=== PATIENT | female | born 1965 | race American Indian/Alaskan Native ===

== ENCOUNTER 2016-06-19 14:23 | Emergency (ER) | payer BC ==
[2016-06-19] MEDS ORDERED: TYLENOL/CODEINE PO ONE (19:00)
[2016-06-19] MEDS ORDERED: TESSALON PERLES PO ONE (19:00)
--- NOTE | 2016-06-19 19:42 | Emergency Department Report ---
Entered by ALEXA PHILLIPS, acting as scribe for ALEJO TAPIA PA. - General Chief Complaint: Upper Respiratory Infection Stated Complaint: FLU SYMPTOMS Time Seen by Provider: 06/19/16 18:08 Source: patient Mode of arrival: Ambulatory Limitations: No Limitations - History of Present Illness Initial Comments: 51 y/o female with Hx of asthma presents to ED c/o non-productive cough that began 3 days ago. Associated Sx include chest "soreness" with coughing but pt denies N/V, fever, chills, SOB, abd pain, numbness, weakness, GRIFFITH. Pt notes recent travel to [place], and believes Sx were caused by weather changes. 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 Pt denies Hx of COPD. Pt has positive sick contacts. No additional Sx MD Complaint: cough -: days(s) (3) Severity: mild Consistency: constant Improves With: nothing Worsens With: nothing Context: sick contacts (Son has similar Sx and onset) Associated Symptoms: sore throat, cough, other (chest "soreness" with coughing) . denies: fever, nausea, vomiting Treatments Prior to Arrival: other (prescribed inhaler, cough medicine and antibiotics) - Related Data Previous Rx's Medication Instructions Recorded Last Taken Type ALBUTEROL Inhaler [ProAir HFA 2 puff IH QID PRN #1 inhalation 11/22/14 Unknown Rx Inhaler] Amoxicillin/Potassium Clav 1 tab PO BID #14 tab.er.12h 11/22/14 Unknown Rx [Augmentin XR 1000MG 12HR] Ibuprofen [Motrin 800 MG tab] 800 mg PO Q8HR PRN #30 tablet 11/22/14 Unknown Rx traMADol [Ultram 50 MG tab] 50 mg PO Q6HR PRN #20 tablet 11/22/14 Unknown Rx Acetamin/Codeine 120-12Mg/5 ml 5 ml PO TID PRN #80 ml 06/19/16 Unknown Rx [Tylenol/Codeine] Benzonatate [Tessalon Perles] 100 mg PO Q8HR #24 capsule 06/19/16 Unknown Rx Prednisone [predniSONE 10 mg 10 mg PO .TAPER #1 tab.ds.pk 06/19/16 Unknown Rx (6-Day Pack, 21 Tabs)] Allergies Allergy/AdvReac Type Severity Reaction Status Date / Time erythromycin base Allergy Itching Verified 06/19/16 15:13 ED Review of Systems Comment: All other systems reviewed and negative Constitutional: denies: chills, fever Respiratory: cough. denies: shortness of breath Cardiovascular: other (chest "soreness" with coughing) Gastrointestinal: denies: abdominal pain, nausea, vomiting Neurological: denies: headache, weakness, numbness ED Past Medical Hx - Past Medical History Previous Medical History?: Yes Hx Headaches / Migraines: Yes Hx Asthma: Yes Additional medical history: Anemia. Migraines. Left knee fracture in high school - Surgical History Additional Surgical History: Hysterectomy, tubal ligation - Social History Smoking Status: Never Smoker Substance Use Type: None - Medications Home Medications: Home Medications Medication Instructions Recorded Confirmed Last Taken Type ALBUTEROL Inhaler [ProAir HFA 2 puff IH QID PRN #1 inhalation 11/22/14 Unknown Rx Inhaler] Amoxicillin/Potassium Clav 1 tab PO BID #14 tab.er.12h 11/22/14 Unknown Rx [Augmentin XR 1000MG 12HR] Ibuprofen [Motrin 800 MG tab] 800 mg PO Q8HR PRN #30 tablet 11/22/14 Unknown Rx traMADol [Ultram 50 MG tab] 50 mg PO Q6HR PRN #20 tablet 11/22/14 Unknown Rx Acetamin/Codeine 120-12Mg/5 ml 5 ml PO TID PRN #80 ml 06/19/16 Unknown Rx [Tylenol/Codeine] Benzonatate [Tessalon Perles] 100 mg PO Q8HR #24 capsule 06/19/16 Unknown Rx Prednisone [predniSONE 10 mg 10 mg PO .TAPER #1 tab.ds.pk 06/19/16 Unknown Rx (6-Day Pack, 21 Tabs)] ED Physical Exam - General Limitations: No Limitations - Other Other exam information: GENERAL: Patient is alert and oriented x 3. No apparent distress, normal gait, atraumatic. HEAD: Head is normocephalic and atraumatic. EYES: Extraocular movements are intact. EARS: Symmetrical, atraumatic, non tender. NOSE: Nose symmetrical, nontender. Nares appeared normal. MOUTH:Mouth is well hydrated and without lesions. NECK: Supple. Non edematous, no carotid bruits. No lymphadenopathy or thyromegaly. LUNGS: Symmetrical with respiration. No wheezing, rales or crackles, CTAB. Noted pt is actively coughing during exam HEART: Regular rate and rhythm with normal S1/S2 present. No murmurs, rubs, or gallops. ABDOMEN: Soft, nondistended. Nontender to palpation on all quadrants. No organomegaly was noted. Positive bowel sounds. No CVA tenderness. EXTREMITIES/MUSCULOSKELETAL: No cyanosis, clubbing, rash, lesions or edema. Full ROM bilaterally. UE/LE Pulses 2+ bilaterally. LE and UE 5+ strength bilaterally SKIN: Warm and dry. No lesions, ulceration or induration present NEUROLOGIC: No focal deficit. ED Course Vital Signs 06/19/16 15:13 Temperature 98.0 F Pulse Rate 83 Respiratory 18 Rate Blood Pressure 131/78 O2 Sat by Pulse 99 Oximetry ED Medical Decision Making - Medical Decision Making 51 y/o female with PMHx of asthma presents with bronchitis ED course: Patient received 40 mg of Solu-Medrol IM. Chest soft. And Tylenol with Codeine. following the patient's Hx and exam, imaging and labs will not be necessary. Discussed with the patient had taken all medication as prescribed. Discussed with patient to follow up with PCP as referred, and to return to the ED if her symptoms return or worsen. Patient states understanding and will follow instructions. Vital signs stable, patient is in no acute distress. ED Disposition Clinical Impression: Bronchitis Disposition: DISCHARGED TO HOME OR SELFCARE Is pt being admited?: No Does the pt Need Aspirin: No Condition: Stable Instructions: Chronic Bronchitis (ED), Acute Bronchitis (ED) Prescriptions: Acetamin/Codeine 120-12Mg/5 ml [Tylenol/Codeine] 5 ml PO TID PRN #80 ml PRN Reason: Pain Benzonatate [Tessalon Perles] 100 mg PO Q8HR #24 capsule Prednisone [predniSONE 10 mg (6-Day Pack, 21 Tabs)] 10 mg PO .TAPER #1 tab.ds.pk Referrals: PRIMARY CARE, [Primary Care Provider] - 3-5 Days Forms: Accompanied Note, Work/School Release Form(ED) Time of Disposition: 19:38 This documentation as recorded by the ALAN souza RYAN,accurately reflects the service I personally performed and the decisions made by ,ALEJO TAPIA PA.
[2016-06-19 21:09] VITALS: BP 136/82
== END 2016-06-19 20:05 | disposition home or self-care (01) ==
LOC: ED 14:23
DX: J40 Bronchitis, not specified as acute or chronic (principal); G43.909 Migraine, unspecified, not intractable, without status migrainosus; J45.909 Unspecified asthma, uncomplicated; D64.9 Anemia, unspecified; Z88.8 Allergy status to other drugs, medicaments and biological substances
CPT/HCPCS: 96372; 99282; J2920

== ENCOUNTER 2016-12-01 14:06 | Emergency (ER) | payer BC ==
[2016-12-01] MEDS ORDERED: NORCO 5/325 PO ONE (17:51)
--- NOTE | 2016-12-01 19:26 | XRay Report ---
FINAL REPORT EXAM: XR HAND 3+V LT HISTORY: pain and swelling sp injury TECHNIQUE: 3 and views of left hand PRIORS: None. FINDINGS: No fracture is identified. No dislocation seen. Joint spaces are within normal limits. No erosive bony change identified. Carpal bones maintain normal alignment. Distal radius and ulna are intact. No radiopaque foreign bodies seen. IMPRESSION: Negative hand series
--- NOTE | 2016-12-01 19:28 | XRay Report ---
FINAL REPORT EXAM: XR FOREARM LT HISTORY: pain and swelling sp injury TECHNIQUE: Two views left elbow PRIORS: None. FINDINGS: No fracture identified. No dislocation seen. No evidence of joint effusion. Joint spaces are within normal limits. IMPRESSION: Negative elbow series
--- NOTE | 2016-12-01 20:26 | Emergency Department Report ---
Upper Extremity - HPI Chief Complaint: Extremity Injury, Upper Stated Complaint: CANT MOVE ARM/FINGERS Time Seen by Provider: 12/01/16 16:43 Upper Extremity: Left Hand (patient here for left hand pain since Friday. This radiated into her left wrist and upper forearm.) Occurred When: 2 Days Mechanism: Hit with Object (she states that she hit her hand on a hard object and it's been hurting her on and off.) Severity: severe (10 out of 10 and aching) Symptoms: Yes Pain with Movement, No Deformity, No Limited Range of Movement, No Numbness, No Weakness, No Swelling, No Bruising/Ecchymosis, No Laceration or Abrasion Other History: He reports that she has a left hand pain is radiating up her left forearm 2 days after hidden her hand and objects. She denies any numbness or tingling. Denies any redness or swelling. Denies any fever or chills. She said pain is worse with movement better with rest and she took over -the-counter pain medication and it didn't help. She denies any chest pain or shortness of breath. ED Review of Systems ROS: Stated complaint: CANT MOVE ARM/FINGERS Other details as noted in HPI Comment: All other systems reviewed and negative Constitutional: no symptoms reported Respiratory: no symptoms reported Cardiovascular: denies: chest pain, palpitations, edema, syncope Gastrointestinal: denies: nausea, vomiting Musculoskeletal: arthralgia. denies: back pain, joint swelling, myalgia Skin: denies: rash Neurological: denies: headache, weakness, numbness, paresthesias, confusion, abnormal gait, vertigo ED Past Medical Hx - Past Medical History Previous Medical History?: Yes Hx Headaches / Migraines: Yes Hx Asthma: Yes Additional medical history: Anemia. Migraines. Left knee fracture in high school - Surgical History Past Surgical History?: Yes Additional Surgical History: Hysterectomy, tubal ligation - Family History Family history: hypertension - Social History Smoking Status: Never Smoker Substance Use Type: None - Medications Home Medications: Home Medications Medication Instructions Recorded Confirmed Last Taken Type ALBUTEROL Inhaler [ProAir HFA 2 puff IH QID PRN #1 inhalation 11/22/14 Unknown Rx Inhaler] Amoxicillin/Potassium Clav 1 tab PO BID #14 tab.er.12h 11/22/14 Unknown Rx [Augmentin XR 1000MG 12HR] Ibuprofen [Motrin 800 MG tab] 800 mg PO Q8HR PRN #30 tablet 11/22/14 Unknown Rx traMADol [Ultram 50 MG tab] 50 mg PO Q6HR PRN #20 tablet 11/22/14 Unknown Rx Acetamin/Codeine 120-12Mg/5 ml 5 ml PO TID PRN #80 ml 06/19/16 Unknown Rx [Tylenol/Codeine] Benzonatate [Tessalon Perles] 100 mg PO Q8HR #24 capsule 06/19/16 Unknown Rx Prednisone [predniSONE 10 mg 10 mg PO .TAPER #1 tab.ds.pk 06/19/16 Unknown Rx (6-Day Pack, 21 Tabs)] Acetaminophen/Codeine [Tylenol 1 tab PO Q6H PRN #12 tab 12/01/16 Unknown Rx /Codeine # 3 tab] Naproxen [Naprosyn TAB] 500 mg PO BID PRN #12 tablet 12/01/16 Unknown Rx Upper Extremity Exam - Exam General: Vital signs noted. No distress. Alert and acting appropriately. This is a 51-year-old female well-nourished well-developed in no acute distress Head and Torso: No HEENT Abnormality, No Neck Tenderness, No Chest/Lungs Abnormality, No Abdominal Tenderness, No Back Tenderness Shoulder Exam: Yes Normal Range of Motion in Shoulder, No Shoulder Tenderness, No Clavicle Tenderness, No Shoulder Deformity, No AC Joint Tenderness Arm Exam: No Arm/Humerus Tenderness, No Arm Deformity Elbow: Yes Normal Range of Motion in Elbow, No Elbow Tenderness, No Elbow Deformity Forearm: No Forearm Tenderness, No Forearm Deformity, No Pain with Pronation, No Pain with Supination Wrist: Yes Normal ROM in Wrist, No Wrist Tenderness, No Wrist Deformity, No Snuffbox Tenderness, No Pain with Axial Thumb Compression Hand: Yes Hand Tenderness (tended to palpate dorsal aspect of hand.), Yes Normal ROM in Digit(s) (patient able to move all fingers without any restrictions.), No Hand Deformity (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 - Orthopedic Splinting/Casting Injury #1 Side: left Upper Extremity Injury Location: hand Upper Extremity Immobilizer: volar spint (prefabricated) Additional Comments: Patient with good neurovascular status after splint placement ED Medical Decision Making - Radiology Data Radiology results: report reviewed X-ray of left hand and wrist include left forearm revealed no acute findings. No soft tissue swelling. - Medical Decision Making ED course: Sent here complaining of left hand pain radiating up her wrist and forearm after hidden in her hand in a hard object. X-ray report of left hand and wrist reveal no acute fracture dislocation. 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 Patient was given Robson 5/325 one tablet without relief of pain and she was given additional Percocet 1 tablet 5/325 mg and forcibly sustained through 10. The patient that she will need to follow up with orthopedic doctor for further evaluation and treatment. I gave her a result of x-ray reports. Patient had full R prefabricated splint placed. I explained Rice protocol to her. Patient was understanding of discharge instruction and treatment plan and discharged home in stable condition with prescription for naproxen and Tylenol No. 3. Critical care attestation.: If time is entered above; I have spent that time in minutes in the direct care of this critically ill patient, excluding procedure time. ED Disposition Clinical Impression: Arthralgia of multiple sites Injury of left hand Qualifiers: Encounter type: initial encounter Qualified Code(s): S69.92XA - Unspecified injury of left wrist, hand and finger(s), initial encounter Disposition: DC-01 TO HOME OR SELFCARE Is pt being admited?: No Does the pt Need Aspirin: No Condition: Stable Instructions: Arthralgia (ED), Splint Care (ED), RICE Therapy (ED) Additional Instructions: Please follow up with primary care as recommended Increase fluid intake Take medication as prescribed but please do not drive or operate heavy machinery while taking Lomotil No. 3 of this medication causes drowsiness . Referred to discharge instruction on splint care. Referred to discharge instruction in Rice therapy. These follow-up with orthopedic doctor as instructed. Prescriptions: Acetaminophen/Codeine [Tylenol /Codeine # 3 tab] 1 tab PO Q6H PRN #12 tab PRN Reason: Pain, Moderate (4-6) Naproxen [Naprosyn TAB] 500 mg PO BID PRN #12 tablet PRN Reason: Pain Referrals: PRIMARY CAREMD [Primary Care Provider] - 2-3 Days ZAKIA TELLEZ MD [Staff Physician] - 2-3 Days Forms: Work/School Release Form(ED)
[2016-12-01] MEDS ORDERED: PERCOCET 5/325 PO ONE (20:37)
[2016-12-01 21:43] VITALS: BP 146/83
== END 2016-12-01 21:43 | disposition home or self-care (01) ==
LOC: ED 14:06
DX: S69.82XA Other specified injuries of left wrist, hand and finger(s), initial encounter (principal); J45.909 Unspecified asthma, uncomplicated; G43.909 Migraine, unspecified, not intractable, without status migrainosus; Z88.8 Allergy status to other drugs, medicaments and biological substances; W22.8XXA Striking against or struck by other objects, initial encounter; Y93.89 Activity, other specified; Y92.89 Other specified places as the place of occurrence of the external cause; Y99.8 Other external cause status

== ENCOUNTER 2017-07-22 12:03 | Emergency (ER) | payer BC ==
[2017-07-22] MEDS ORDERED: BENADRYL IV ONE (14:48)
[2017-07-22] MEDS ORDERED: REGLAN IV ONE (14:48)
[2017-07-22] MEDS ORDERED: DECADRON IV ONE (14:49)
[2017-07-22] MEDS ORDERED: FIORICET PO ONE (14:49)
--- NOTE | 2017-07-22 14:51 | Emergency Department Report ---
Blank Doc - Documentation Documentation: Patient presents to emergency department with a headache that became worse yesterday. Patient states that she has a history of migraines and has not had one in years. Patient also complains of her blood pressure being elevated with recent checks. Patient will be followed by the [facility]
--- NOTE | 2017-07-22 16:58 | Cat Scan Report ---
FINAL REPORT EXAM: CT HEAD/BRAIN WO CON HISTORY: headache TECHNIQUE: CT head without contrast PRIORS: None. FINDINGS: No acute intra-axial or extra-axial hemorrhage is identified. There is no evidence of midline shift or mass effect. The ventricles and sulci are within normal limits. Kevin-white matter differentiation is intact. No acute parenchymal abnormalities seen. Bony calvarium is grossly intact. Visualized portions of the mastoids and paranasal sinuses are unremarkable. IMPRESSION: Negative CT head
--- NOTE | 2017-07-22 17:07 | Emergency Department Report ---
ED Headache HPI - General Chief Complaint: Headache Stated Complaint: HEADACHE/N/V HTN Time Seen by Provider: 07/22/17 14:29 Source: patient - History of Present Illness Initial Comments: This is a 52-year-old female with a history of migraine who presents to ED complaining of throbbing, intermittent, left temporal, 6 out of 10 intensity headache that is worsened with light. Patient also states she has a concern about her elevated blood pressure. Denies fevers/chills/nausea vomiting/blurry vision/chest pain/shortness of breath/head trauma or injuries or falls Quality: moderate Recent Head Trauma: no recent headache/trauma Allergies/Adverse Reactions: Allergies erythromycin base Allergy (Verified 06/19/16 15:13) Itching Home Medications: Ambulatory Orders ALBUTEROL Inhaler [ProAir HFA Inhaler] 2 puff IH QID PRN #1 inhalation 11/22/14 Amoxicillin/Potassium Clav [Augmentin XR 1000MG 12HR] 1 tab PO BID #14 tab.er.12h 11/22/14 traMADol [Ultram 50 MG tab] 50 mg PO Q6HR PRN #20 tablet 11/22/14 Acetamin/Codeine 120-12Mg/5 ml [Tylenol/Codeine] 5 ml PO TID PRN #80 ml Benzonatate [Tessalon Perles] 100 mg PO Q8HR #24 capsule 06/19/16 Prednisone [predniSONE 10 mg (6-Day Pack, 21 Tabs)] 10 mg PO .TAPER #1 tab.ds.pk 06/19/16 Acetaminophen/Codeine [Tylenol /Codeine # 3 tab] 1 tab PO Q6H PRN #12 tab Naproxen [Naprosyn TAB] 500 mg PO BID PRN #12 tablet 12/01/16 Ibuprofen [Motrin 800 MG tab] 800 mg PO Q8HR PRN #30 tablet 07/22/17 Prochlorperazine [Compazine] 10 mg PO Q8HR #20 tablet 07/22/17 ED Review of Systems ROS: Stated complaint: HEADACHE/N/V HTN Other details as noted in HPI Constitutional: denies: chills, fever Eyes: denies: eye pain, eye discharge, vision change ENT: denies: ear pain, throat pain Respiratory: denies: cough, shortness of breath, wheezing Cardiovascular: denies: chest pain, palpitations Endocrine: no symptoms reported Gastrointestinal: denies: abdominal pain, nausea, diarrhea Genitourinary: denies: urgency, dysuria, frequency, hematuria, discharge Musculoskeletal: denies: back pain, joint swelling, arthralgia Skin: denies: rash, lesions Neurological: headache. denies: weakness, numbness, paresthesias, confusion Psychiatric: denies: anxiety, depression Hematological/Lymphatic: denies: easy bleeding, easy bruising ED Past Medical Hx - Past Medical History Previous Medical History?: Yes Hx Headaches / Migraines: Yes Hx Asthma: Yes Additional medical history: Anemia. Migraines. Left knee fracture in high school, [employer] - Surgical History Past Surgical History?: Yes Additional Surgical History: Hysterectomy, tubal ligation - Social History Smoking Status: Never Smoker Substance Use Type: Alcohol, Non Opiate Pain - Medications Home Medications: Home Medications Medication Instructions Recorded Confirmed Last Taken Type ALBUTEROL Inhaler [ProAir HFA 2 puff IH QID PRN #1 inhalation 11/22/14 Unknown Rx Inhaler] Amoxicillin/Potassium Clav 1 tab PO BID #14 tab.er.12h 11/22/14 Unknown Rx [Augmentin XR 1000MG 12HR] traMADol [Ultram 50 MG tab] 50 mg PO Q6HR PRN #20 tablet 11/22/14 Unknown Rx Acetamin/Codeine 120-12Mg/5 ml 5 ml PO TID PRN #80 ml 06/19/16 Unknown Rx [Tylenol/Codeine] Benzonatate [Tessalon Perles] 100 mg PO Q8HR #24 capsule 06/19/16 Unknown Rx Prednisone [predniSONE 10 mg 10 mg PO .TAPER #1 tab.ds.pk 06/19/16 Unknown Rx (6-Day Pack, 21 Tabs)] Acetaminophen/Codeine [Tylenol 1 tab PO Q6H PRN #12 tab 12/01/16 Unknown Rx /Codeine # 3 tab] Naproxen [Naprosyn TAB] 500 mg PO BID PRN #12 tablet 12/01/16 Unknown Rx Ibuprofen [Motrin 800 MG tab] 800 mg PO Q8HR PRN #30 tablet 07/22/17 Unknown Rx Prochlorperazine [Compazine] 10 mg PO Q8HR #20 tablet 07/22/17 Unknown Rx ED Physical Exam - General Limitations: No Limitations General appearance: alert, in no apparent distress - Head Head exam: Present: atraumatic, normocephalic - Eye Eye exam: Present: normal appearance - ENT ENT exam: Present: mucous membranes moist - Neck Neck exam: Present: normal inspection - Respiratory Respiratory exam: Present: normal lung sounds bilaterally. Absent: respiratory distress, wheezes, rales - Cardiovascular Cardiovascular Exam: Present: regular rate, normal rhythm. Absent: systolic murmur, diastolic murmur, rubs, gallop - GI/Abdominal GI/Abdominal exam: Present: soft, normal bowel sounds - Extremities Exam Extremities exam: Present: normal inspection, full ROM - Back Exam Back exam: Present: normal inspection - Neurological Exam Neurological exam: Present: alert, oriented X3 - Expanded Neurological Exam Expanded Patient oriented to: Present: person, place, time Speech: Present: fluid speech Cranial nerves: EOM's Intact: Normal Cerebellar function: Finger to Nose: Normal Sensory exam: Upper Extremity Light Touch: Normal, Lower Extremity Light Touch: Normal Motor strength exam: RUE: 5, LUE: 5, RLE: 5, LLE: 5 DTR: knee (R): 2+, knee (L): 2+ Best Eye Response ([place]): (4) open spontaneously Best Motor Response (Luis): (6) obeys commands Best Verbal Response (Luis): (5) oriented Luis Total: 15 - Psychiatric Psychiatric exam: Present: normal affect, normal mood - Skin Skin exam: Present: warm, dry, intact, normal color. Absent: rash ED Course Vital Signs 07/22/17 07/22/17 12:24 17:23 Temperature 98 F Pulse Rate 99 H Respiratory 16 Rate Blood Pressure 120/71 Blood Pressure 115/70 [Right] O2 Sat by Pulse 98 Oximetry ED Medical Decision Making - Radiology Data Radiology results: report reviewed, image reviewed FINAL REPORT EXAM: CT HEAD/BRAIN WO CON HISTORY: headache TECHNIQUE: CT head without contrast PRIORS: None. FINDINGS: No acute intra-axial or extra-axial hemorrhage is identified. There is no evidence of midline shift or mass effect. The ventricles and sulci are within normal limits. Kevin-white matter differentiation is intact. No acute parenchymal abnormalities seen. Bony calvarium is grossly intact. Visualized portions of the mastoids and paranasal sinuses are unremarkable. IMPRESSION: Negative CT head Transcribed By: JEAN Dictated By: BARTOLO FORDE MD Electronically Authenticated By: BARTOLO FORDE MD Signed Date/Time: 07/22/17 1652 - Medical Decision Making 52-year-old female presents with migraine headache ED course: Patient received headache cocktail in the ED CT scan ordered. CT scan shows no acute abnormalities. Vital signs are normal patient is in no acute respiratory distress Patient had no neurological symptoms. Discussed the follow up with primary care physician. Critical care attestation.: If time is entered above; I have spent that time in minutes in the direct care of this critically ill patient, excluding procedure time. ED Disposition Clinical Impression: Acute headache Qualifiers: Headache type: tension-type Intractability: not intractable Qualified Code(s): G44.209 - Tension-type headache, unspecified, not intractable Disposition: DC-01 TO HOME OR SELFCARE Is pt being admited?: No Does the pt Need Aspirin: No Condition: Stable Instructions: Migraine Headache (ED), Tension Headache (ED), Acute Headache (ED ) Additional Instructions: Make sure to follow up with the primary care physician as discussed. Take all your medications as you've been prescribed. If you have any worsening symptoms or develop new symptoms please return to ED immediately. Prescriptions: Ibuprofen [Motrin 800 MG tab] 800 mg PO Q8HR PRN #30 tablet PRN Reason: Pain Prochlorperazine [Compazine] 10 mg PO Q8HR #20 tablet Referrals: PRIMARY CAREMD [Primary Care Provider] - 3-5 Days [facility] [Outside] - 3-5 Days [facility] [Outside] - 3-5 Days [facility] [Outside] - 3-5 Days Forms: Accompanied Note, Work/School Release Form(ED) Time of Disposition: 17:07
[2017-07-22 17:24] VITALS: BP 115/70
== END 2017-07-22 17:28 | disposition home or self-care (01) ==
LOC: ED 12:03
DX: G44.209 Tension-type headache, unspecified, not intractable (principal); I10 Essential (primary) hypertension; J45.909 Unspecified asthma, uncomplicated; Z90.710 Acquired absence of both cervix and uterus; Z98.51 Tubal ligation status
CPT/HCPCS: 70450; 93005; 93010; 96374; 96375; 99284; J1100; J1200; J2765

== ENCOUNTER 2017-08-25 12:46 | Emergency (ER) | payer BC ==
[2017-08-25 13:01] VITALS: BP 127/66
== END 2017-08-25 16:05 | disposition left against medical advice (07) ==
LOC: ED 12:46
DX: M25.519 Pain in unspecified shoulder (principal); Z53.21 Procedure and treatment not carried out due to patient leaving prior to being seen by health care provider

== ENCOUNTER 2017-09-02 10:09 | Emergency (ER) | payer BC ==
[2017-09-02 10:20] VITALS: BP 145/66
--- NOTE | 2017-09-02 11:01 | XRay Report ---
LEFT HAND RADIOGRAPHS INDICATION: Injury. COMPARISON: 12/01/2016. FINDINGS: AP and lateral left hand radiographs again demonstrate intact bony articulation and normal soft tissues. Mild osteoarthritic changes as at the interphalangeal/DIP joints suspected. CONCLUSION: No acute left hand radiographic abnormality with mild osteoarthrosis, as described. Please correlate. Thank you for the opportunity to participate in this patient's care.
--- NOTE | 2017-09-02 11:55 | Emergency Department Report ---
ED Upper Extremity Inj HPI - General Chief Complaint: Extremity Injury, Upper Stated Complaint: LEFT HAND INJURY Time Seen by Provider: 09/02/17 11:54 Source: patient Mode of arrival: Ambulatory Limitations: No Limitations - History of Present Illness Initial Comments: This is a 52-year-old -[place] female who presents with pain to left hand from falling 2 days ago at home in the shower. Patient reports taking a shower Friday around 1200 and slipping. She turned around in the tub and fell to her left knee. She tried to prevent hitting her head by a break and fall with left hand. A few hours later she started to have pain with range of motion of the left wrist and hand. She has been applying ice and heating pad with no improvement of symptoms. Patient admits she is able to wiggle her fingers but severe pain when she attempted to make a fist. She denies numbness or tingling, swelling, deformity, erythema, loss of consciousness, and ecchymosis. MD Complaint: Injury to:: left, wrist -: days(s) (2 days ago) Other Extremity Injury: Wrist: Left Other Injuries: none Handedness: right Place: home Severity scale (0 -10): 6 Improves With: none Worsens With: movement of extremity Context: fall Associated Symptoms: denies other symptoms Treatments Prior to Arrival: cold therapy - Related Data Previous Rx's Medication Instructions Recorded Last Taken Type ALBUTEROL Inhaler [ProAir HFA 2 puff IH QID PRN #1 inhalation 11/22/14 Unknown Rx Inhaler] Amoxicillin/Potassium Clav 1 tab PO BID #14 tab.er.12h 11/22/14 Unknown Rx [Augmentin XR 1000MG 12HR] traMADol [Ultram 50 MG tab] 50 mg PO Q6HR PRN #20 tablet 11/22/14 Unknown Rx Acetamin/Codeine 120-12Mg/5 ml 5 ml PO TID PRN #80 ml 06/19/16 Unknown Rx [Tylenol/Codeine] Benzonatate [Tessalon Perles] 100 mg PO Q8HR #24 capsule 06/19/16 Unknown Rx Prednisone [predniSONE 10 mg 10 mg PO .TAPER #1 tab.ds.pk 06/19/16 Unknown Rx (6-Day Pack, 21 Tabs)] Acetaminophen/Codeine [Tylenol 1 tab PO Q6H PRN #12 tab 12/01/16 Unknown Rx /Codeine # 3 tab] Naproxen [Naprosyn TAB] 500 mg PO BID PRN #12 tablet 12/01/16 Unknown Rx Ibuprofen [Motrin 800 MG tab] 800 mg PO Q8HR PRN #30 tablet 07/22/17 Unknown Rx Prochlorperazine [Compazine] 10 mg PO Q8HR #20 tablet 07/22/17 Unknown Rx Ibuprofen [Motrin 800 MG tab] 800 mg PO Q8HR PRN #15 tablet 09/02/17 Unknown Rx traMADol [Ultram 50 MG tab] 50 mg PO Q6HR PRN #15 tablet 09/02/17 Unknown Rx Allergies Allergy/AdvReac Type Severity Reaction Status Date / Time erythromycin base Allergy Itching Verified 06/19/16 15:13 ED Review of Systems ROS: Stated complaint: LEFT HAND INJURY Other details as noted in HPI Constitutional: denies: chills, fever Respiratory: denies: cough, shortness of breath, wheezing Cardiovascular: denies: chest pain, palpitations Gastrointestinal: denies: abdominal pain, nausea, diarrhea Musculoskeletal: arthralgia (left wrist pain with range of motion). denies: back pain, joint swelling Skin: denies: rash, lesions Neurological: denies: headache, weakness, numbness, paresthesias Psychiatric: denies: anxiety, depression ED Past Medical Hx - Past Medical History Previous Medical History?: Yes Hx Headaches / Migraines: Yes Hx Asthma: Yes Additional medical history: Anemia. Migraines. Left knee fracture in high school, BRONCHITIS - Surgical History Additional Surgical History: Hysterectomy, tubal ligation - Social History Smoking Status: Never Smoker Substance Use Type: None - Medications Home Medications: Home Medications Medication Instructions Recorded Confirmed Last Taken Type ALBUTEROL Inhaler [ProAir HFA 2 puff IH QID PRN #1 inhalation 11/22/14 Unknown Rx Inhaler] Amoxicillin/Potassium Clav 1 tab PO BID #14 tab.er.12h 11/22/14 Unknown Rx [Augmentin XR 1000MG 12HR] traMADol [Ultram 50 MG tab] 50 mg PO Q6HR PRN #20 tablet 11/22/14 Unknown Rx Acetamin/Codeine 120-12Mg/5 ml 5 ml PO TID PRN #80 ml 06/19/16 Unknown Rx [Tylenol/Codeine] Benzonatate [Tessalon Perles] 100 mg PO Q8HR #24 capsule 06/19/16 Unknown Rx Prednisone [predniSONE 10 mg 10 mg PO .TAPER #1 tab.ds.pk 06/19/16 Unknown Rx (6-Day Pack, 21 Tabs)] Acetaminophen/Codeine [Tylenol 1 tab PO Q6H PRN #12 tab 12/01/16 Unknown Rx /Codeine # 3 tab] Naproxen [Naprosyn TAB] 500 mg PO BID PRN #12 tablet 12/01/16 Unknown Rx Ibuprofen [Motrin 800 MG tab] 800 mg PO Q8HR PRN #30 tablet 07/22/17 Unknown Rx Prochlorperazine [Compazine] 10 mg PO Q8HR #20 tablet 07/22/17 Unknown Rx Ibuprofen [Motrin 800 MG tab] 800 mg PO Q8HR PRN #15 tablet 09/02/17 Unknown Rx traMADol [Ultram 50 MG tab] 50 mg PO Q6HR PRN #15 tablet 09/02/17 Unknown Rx ED Physical Exam - General Limitations: No Limitations General appearance: alert, in no apparent distress - Respiratory Respiratory exam: Present: normal lung sounds bilaterally. Absent: respiratory distress - Cardiovascular Cardiovascular Exam: Present: regular rate, normal rhythm. Absent: systolic murmur, diastolic murmur, rubs, gallop - GI/Abdominal GI/Abdominal exam: Present: soft, normal bowel sounds. Absent: organomegaly, mass - Expanded Upper Extremity Exam Left Shoulder Exam: Present: normal inspection, full ROM Upper Arm exam: Present: normal inspection, full ROM Elbow exam: Present: normal inspection, full ROM Forearm Wrist exam: Present: full ROM, tenderness, pain with axial thumb loading. Absent: swelling, abrasion, laceration, ecchymosis, deformity, crepidus, dislocation, erythema, tenderness over anatomical snuff box Hand Wrist exam: Present: full ROM. Absent: swelling, abrasion, laceration, ecchymosis, deformity, crepidus, dislocation, erythema, amputation, nail avulsion, subungual hematoma Neuro motor exam: Present: wrist extension intact, thumb opposition intact, thumb IP flexion intact, thumb adduction intact, fingers 2-5 abduction intact Neurosensory exam: Present: radial nerve intact, ulnar nerve intact, median nerve intact Vascular: Present: normal capillary refill, radial pulse - Neurological Exam Neurological exam: Present: alert, oriented X3 - Psychiatric Psychiatric exam: Present: normal affect, normal mood - Skin Skin exam: Present: warm, dry, intact, normal color. Absent: rash ED Course Vital Signs 09/02/17 09/02/17 10:16 12:23 Temperature 98.5 F Pulse Rate 95 H Respiratory 18 18 Rate Blood Pressure 145/66 O2 Sat by Pulse 99 Oximetry ED Medical Decision Making - Radiology Data Radiology results: report reviewed LEFT HAND RADIOGRAPHS INDICATION: Injury. COMPARISON: 12/01/2016. FINDINGS: AP and lateral left hand radiographs again demonstrate intact bony articulation and normal soft tissues. Mild osteoarthritic changes as at the interphalangeal/DIP joints suspected. CONCLUSION: No acute left hand radiographic abnormality with mild osteoarthrosis, as described. Please correlate. - Medical Decision Making This is a 52 y.o. female presents with left wrist pain for 2 days from a fall. Patient was examined by me. Vitals are normal. Patient is in no acute distress. Patient was given tramadol 50 mg by mouth once while in the ER. X- ray of the left hand obtained and read by radiologist. Physical findings susceptible of muscle strain. No acute left hand radiographic abnormality with mild osteoarthrosis, as described. Please correlate. Applied wrist immobilizer to left wrist. Start ibuprofen for pain. Plan discussed with patient to discharge home and treat outpatient. Follow-up with primary care provider in 2-3 days. Patient given referral to orthopedics if no improvement and 5-7 days follow-up with them. Patient discharged home in stable condition. Critical care attestation.: If time is entered above; I have spent that time in minutes in the direct care of this critically ill patient, excluding procedure time. ED Disposition Clinical Impression: Left wrist pain Muscle strain of left wrist Qualifiers: Encounter type: initial encounter Qualified Code(s): S66.912A - Strain of unspecified muscle, fascia and tendon at wrist and hand level, left hand, initial encounter Disposition: TO HOME OR SELFCARE Is pt being admited?: No Does the pt Need Aspirin: No Condition: Stable Instructions: Muscle Strain (ED), Wrist Sprain (ED) Additional Instructions: Rest Use ice or heat on affected area for 20 minutes and off for 2 hours. Take pain medication as needed for pain. Follow up with Primary Care Provider in 2-3 days. Prescriptions: Ibuprofen [Motrin 800 MG tab] 800 mg PO Q8HR PRN #15 tablet PRN Reason: Pain, Mild (1-3) traMADol [Ultram 50 MG tab] 50 mg PO Q6HR PRN #15 tablet PRN Reason: Pain , Severe (7-10) Referrals: CHELSEA PHILLIPS MD [Primary Care Provider] - 3-5 Days Time of Disposition: 13:30 Print Language: [place] CITIZEN
[2017-09-02] MEDS ORDERED: ULTRAM PO ONE (12:07)
== END 2017-09-02 13:42 | disposition home or self-care (01) ==
LOC: ED 10:09
DX: S66.912A Strain of unspecified muscle, fascia and tendon at wrist and hand level, left hand, initial encounter (principal); G43.909 Migraine, unspecified, not intractable, without status migrainosus; J45.909 Unspecified asthma, uncomplicated; D64.9 Anemia, unspecified; Z90.710 Acquired absence of both cervix and uterus; Z98.51 Tubal ligation status; Z88.1 Allergy status to other antibiotic agents; W18.2XXA Fall in (into) shower or empty bathtub, initial encounter; Y93.89 Activity, other specified; Y99.8 Other external cause status; Y92.091 Bathroom in other non-institutional residence as the place of occurrence of the external cause

== ENCOUNTER 2018-03-11 15:36 | Emergency (ER) | payer BC ==
--- NOTE | 2018-03-11 21:01 | Emergency Department Report ---
Addendum entered and electronically signed by IVAN AGUILAR PA 03/11/18 21:08: Correction to history. Patient also reports having some mucus to the bilateral eyes in the morning over the last 2-3 days Correction to examination. On the eyes. He has bilateral conjunctival irritation. No discharge is active. Original Note: - General Chief Complaint: Upper Respiratory Infection Stated Complaint: FLU SYMPTOMS Time Seen by Provider: 03/11/18 18:51 Source: patient Mode of arrival: Ambulatory Limitations: No Limitations - History of Present Illness MD Complaint: cough, sore throat, rhinorrhea, nasal congestion -: Gradual, week(s) (3) Severity: mild Quality: dull Consistency: constant Improves With: nothing Worsens With: nothing Context: sick contacts Associated Symptoms: rhinorrhea, nasal congestion, cough. denies: chills, myalgias, diaphoresis, shortness of breath, abdominal pain, confusion, weight loss, epistaxis, hoarseness Treatments Prior to Arrival: none - Related Data Previous Rx's Medication Instructions Recorded Last Taken Type ALBUTEROL Inhaler (OR & NICU) 2 puff IH QID PRN #1 inhalation 11/22/14 Unknown Rx [ProAir HFA Inhaler] Amoxicillin/Potassium Clav 1 tab PO BID #14 tab.er.12h 11/22/14 Unknown Rx [Augmentin XR 1000MG 12HR] traMADol [Ultram 50 MG tab] 50 mg PO Q6HR PRN #20 tablet 11/22/14 Unknown Rx Acetamin/Codeine 120-12Mg/5 ml 5 ml PO TID PRN #80 ml 06/19/16 Unknown Rx [Tylenol/Codeine] Benzonatate [Tessalon Perles] 100 mg PO Q8HR #24 capsule 06/19/16 Unknown Rx Prednisone [predniSONE 10 mg 10 mg PO .TAPER #1 tab.ds.pk 06/19/16 Unknown Rx (6-Day Pack, 21 Tabs)] Acetaminophen/Codeine [Tylenol 1 tab PO Q6H PRN #12 tab 12/01/16 Unknown Rx /Codeine # 3 tab] Naproxen [Naprosyn TAB] 500 mg PO BID PRN #12 tablet 12/01/16 Unknown Rx Ibuprofen [Motrin 800 MG tab] 800 mg PO Q8HR PRN #30 tablet 07/22/17 Unknown Rx Prochlorperazine [Compazine] 10 mg PO Q8HR #20 tablet 07/22/17 Unknown Rx Ibuprofen [Motrin 800 MG tab] 800 mg PO Q8HR PRN #15 tablet 09/02/17 Unknown Rx traMADol [Ultram 50 MG tab] 50 mg PO Q6HR PRN #15 tablet 09/02/17 Unknown Rx ALBUTEROL Inhaler (OR & NICU) 1 puff IH Q4-6H PRN #1 inha 03/11/18 Unknown Rx [ProAir HFA Inhaler] Amoxicillin/Potassium Clav 1 each PO BID #20 tablet 03/11/18 Unknown Rx [Augmentin 875-125 Tablet] guaiFENesin/CODEINE [Robitussin AC] 5 ml PO Q6H PRN #120 ml 03/11/18 Unknown Rx predniSONE [Deltasone] 20 mg PO QDAY #5 tab 03/11/18 Unknown Rx Allergies Allergy/AdvReac Type Severity Reaction Status Date / Time erythromycin base Allergy Itching Verified 06/19/16 15:13 ED Review of Systems ROS: Stated complaint: FLU SYMPTOMS Other details as noted in HPI Constitutional: denies: chills, fever Eyes: denies: eye pain, eye discharge, vision change ENT: denies: ear pain, throat pain Respiratory: cough. denies: shortness of breath, SOB with exertion, wheezing Cardiovascular: denies: chest pain, palpitations Endocrine: no symptoms reported Gastrointestinal: denies: abdominal pain, nausea, diarrhea Genitourinary: denies: urgency, dysuria, discharge Musculoskeletal: denies: back pain, joint swelling, arthralgia Skin: denies: rash, lesions Neurological: denies: headache, weakness, paresthesias Psychiatric: denies: anxiety, depression Hematological/Lymphatic: denies: easy bleeding, easy bruising ED Past Medical Hx - Past Medical History Hx Headaches / Migraines: Yes Hx Asthma: Yes Additional medical history: Anemia. Migraines. Left knee fracture in high school, BRONCHITIS - Surgical History Additional Surgical History: Hysterectomy, tubal ligation - Social History Smoking Status: Never Smoker Substance Use Type: None - Medications Home Medications: Home Medications Medication Instructions Recorded Confirmed Last Taken Type ALBUTEROL Inhaler (OR & NICU) 2 puff IH QID PRN #1 inhalation 11/22/14 Unknown Rx [ProAir HFA Inhaler] Amoxicillin/Potassium Clav 1 tab PO BID #14 tab.er.12h 11/22/14 Unknown Rx [Augmentin XR 1000MG 12HR] traMADol [Ultram 50 MG tab] 50 mg PO Q6HR PRN #20 tablet 11/22/14 Unknown Rx Acetamin/Codeine 120-12Mg/5 ml 5 ml PO TID PRN #80 ml 06/19/16 Unknown Rx [Tylenol/Codeine] Benzonatate [Tessalon Perles] 100 mg PO Q8HR #24 capsule 06/19/16 Unknown Rx Prednisone [predniSONE 10 mg 10 mg PO .TAPER #1 tab.ds.pk 06/19/16 Unknown Rx (6-Day Pack, 21 Tabs)] Acetaminophen/Codeine [Tylenol 1 tab PO Q6H PRN #12 tab 12/01/16 Unknown Rx /Codeine # 3 tab] Naproxen [Naprosyn TAB] 500 mg PO BID PRN #12 tablet 12/01/16 Unknown Rx Ibuprofen [Motrin 800 MG tab] 800 mg PO Q8HR PRN #30 tablet 07/22/17 Unknown Rx Prochlorperazine [Compazine] 10 mg PO Q8HR #20 tablet 07/22/17 Unknown Rx Ibuprofen [Motrin 800 MG tab] 800 mg PO Q8HR PRN #15 tablet 09/02/17 Unknown Rx traMADol [Ultram 50 MG tab] 50 mg PO Q6HR PRN #15 tablet 09/02/17 Unknown Rx ALBUTEROL Inhaler (OR & NICU) 1 puff IH Q4-6H PRN #1 inha 03/11/18 Unknown Rx [ProAir HFA Inhaler] Amoxicillin/Potassium Clav 1 each PO BID #20 tablet 03/11/18 Unknown Rx [Augmentin 875-125 Tablet] guaiFENesin/CODEINE [Robitussin AC] 5 ml PO Q6H PRN #120 ml 03/11/18 Unknown Rx predniSONE [Deltasone] 20 mg PO QDAY #5 tab 03/11/18 Unknown Rx ED Physical Exam - General Limitations: No Limitations General appearance: alert, in no apparent distress - Head Head exam: Present: atraumatic, normocephalic - Eye Eye exam: Present: normal appearance, PERRL Pupils: Present: normal accommodation - ENT ENT exam: Present: normal exam, mucous membranes moist, other (bilateral sinus congestion with very was redness and and knees yellow-green nasal discharge. There is tenderness to percussion to the maxillary sinus region. Small effusion to the right ear. Neck is supple with no lymphadenopathy.) - Neck Neck exam: Present: normal inspection, tenderness - Respiratory Respiratory exam: Present: normal lung sounds bilaterally, rhonchi. Absent: respiratory distress, rales - Cardiovascular Cardiovascular Exam: Present: regular rate, normal rhythm. Absent: systolic murmur, diastolic murmur, rubs, gallop - GI/Abdominal GI/Abdominal exam: Present: soft, normal bowel sounds - Extremities Exam Extremities exam: Present: normal inspection - Back Exam Back exam: Present: normal inspection - Neurological Exam Neurological exam: Present: alert, oriented X3 - Psychiatric Psychiatric exam: Present: normal affect, normal mood - Skin Skin exam: Present: warm, dry, intact, normal color. Absent: rash ED Course Vital Signs 03/11/18 15:46 Temperature 97.7 F Pulse Rate 85 Respiratory 18 Rate Blood Pressure 133/58 O2 Sat by Pulse 98 Oximetry Critical care attestation.: If time is entered above; I have spent that time in minutes in the direct care of this critically ill patient, excluding procedure time. ED Disposition Clinical Impression: Cough, URI (upper respiratory infection) Disposition: - TO HOME OR SELFCARE Is pt being admited?: No Does the pt Need Aspirin: No Condition: Stable Instructions: Acute Bronchitis (ED) Prescriptions: ALBUTEROL Inhaler (OR & NICU) [ProAir HFA Inhaler] 1 puff IH Q4-6H PRN #1 inha PRN Reason: Cough Amoxicillin/Potassium Clav [Augmentin 875-125 Tablet] 1 each PO BID #20 tablet guaiFENesin/CODEINE [Robitussin AC] 5 ml PO Q6H PRN #120 ml PRN Reason: Cough predniSONE [Deltasone] 20 mg PO QDAY #5 tab Referrals: [facility] [Provider Group] - 3-5 Days
== END 2018-03-11 21:11 | disposition home or self-care (01) ==
LOC: ED 15:36
CPT/HCPCS: 99282

== ENCOUNTER 2018-09-01 13:09 | Emergency (ER) | payer BC ==
--- NOTE | 2018-09-01 13:24 | Event Note ---
ED Screening Note ED Screening Note: high ruq pain no dysuria no n/v/d inc since friday This initial assessment/diagnostic orders/clinical plan/treatment(s) is/are subject to change based on patients health status, clinical progression and re- assessment by fellow clinical providers in the ED. Further treatment and workup at subsequent clinical providers discretion. Patient/guardian urged not to elope from the ED as their condition may be serious if not clinically assessed and managed. Initial orders include:
[2018-09-01 14:07] LABS: Basophils # (Auto) 0.1 K/mm3 (0.0-0.1); Basophils % (Auto) 1.3 % (0.0-1.8); Eosinophils # (Auto) 0.1 K/mm3 (0.0-0.4); Hematocrit 39.2 % (30.3-42.9); Hemoglobin 13.2 gm/dl (10.1-14.3); Lymphocytes # (Auto) 2.4 K/mm3 (1.2-5.4); Lymphocytes % (Auto) 31.1 % (13.4-35.0); Mean Corpuscular HGB Conc 34 % (30-34); Mean Corpuscular Volume 79 fl (79-97); Monocytes # (Auto) 0.6 K/mm3 (0.0-0.8); Monocytes % (Auto) 8.2 % (0.0-7.3); Platelet Count 206 K/mm3 (140-440); Red Blood Count 4.97 M/mm3 (3.65-5.03); Red Cell Distribution Width 14.5 % (13.2-15.2)
[2018-09-01 14:28] LABS: Alanine Aminotransferase 13 units/L (7-56); BUN/Creatinine Ratio 15; Blood Urea Nitrogen 9 mg/dL (7-17); Calcium 9.4 mg/dL (8.4-10.2); Hemolysis Index 13
[2018-09-01 14:29] LABS: Bilirubin,Direct < 0.2 mg/dL (0-0.2)
--- NOTE | 2018-09-01 15:44 | Emergency Department Report ---
ED General Adult HPI - General Chief complaint: Abdominal Pain Stated complaint: RT SIDE PAIN Time Seen by Provider: 09/01/18 13:24 Source: patient Mode of arrival: Ambulatory Limitations: No Limitations - History of Present Illness Initial comments: A 53-year-old female who presents to ED complaining of right-sided rib pain that started Friday. Patient states that she woke up and started expressing a throbbing sensation on the right side related and left side of the rib cage. Patient denies any trauma, injuries or falls. Patient states that lifting her arm up or palpating the area worsens the pain. She denies cough, fever, shortness of breath, runny nose - Related Data Previous Rx's Medication Instructions Recorded Last Taken Type ALBUTEROL Inhaler (OR & NICU) 2 puff IH QID PRN #1 inhalation 11/22/14 Unknown Rx [ProAir HFA Inhaler] Amoxicillin/Potassium Clav 1 tab PO BID #14 tab.er.12h 11/22/14 Unknown Rx [Augmentin XR 1000MG 12HR] traMADol [Ultram 50 MG tab] 50 mg PO Q6HR PRN #20 tablet 11/22/14 Unknown Rx Acetamin/Codeine 120-12Mg/5 ml 5 ml PO TID PRN #80 ml 06/19/16 Unknown Rx [Tylenol/Codeine] Benzonatate [Tessalon Perles] 100 mg PO Q8HR #24 capsule 06/19/16 Unknown Rx Prednisone [predniSONE 10 mg 10 mg PO .TAPER #1 tab.ds.pk 06/19/16 Unknown Rx (6-Day Pack, 21 Tabs)] Acetaminophen/Codeine [Tylenol 1 tab PO Q6H PRN #12 tab 12/01/16 Unknown Rx /Codeine # 3 tab] Ibuprofen [Motrin 800 MG tab] 800 mg PO Q8HR PRN #30 tablet 07/22/17 Unknown Rx Prochlorperazine [Compazine] 10 mg PO Q8HR #20 tablet 07/22/17 Unknown Rx Ibuprofen [Motrin 800 MG tab] 800 mg PO Q8HR PRN #15 tablet 09/02/17 Unknown Rx traMADol [Ultram 50 MG tab] 50 mg PO Q6HR PRN #15 tablet 09/02/17 Unknown Rx ALBUTEROL Inhaler (OR & NICU) 1 puff IH Q4-6H PRN #1 inha 03/11/18 Unknown Rx [ProAir HFA Inhaler] Amoxicillin/Potassium Clav 1 each PO BID #20 tablet 03/11/18 Unknown Rx [Augmentin 875-125 Tablet] Tobramycin [Tobrex] 1 drop OP Q4H #1 bottle 03/11/18 Unknown Rx guaiFENesin/CODEINE [Robitussin AC] 5 ml PO Q6H PRN #120 ml 03/11/18 Unknown Rx predniSONE [Deltasone] 20 mg PO QDAY #5 tab 03/11/18 Unknown Rx Cyclobenzaprine [Flexeril] 10 mg PO QHS PRN #20 tablet 09/01/18 Unknown Rx Naproxen [Naprosyn TAB] 500 mg PO BID PRN #12 tablet 09/01/18 Unknown Rx Allergies Allergy/AdvReac Type Severity Reaction Status Date / Time erythromycin base Allergy Itching Verified 06/19/16 15:13 ED Review of Systems ROS: Stated complaint: RT SIDE PAIN Other details as noted in HPI Comment: All other systems reviewed and negative ED Past Medical Hx - Past Medical History Previous Medical History?: Yes Hx Headaches / Migraines: Yes Hx Asthma: Yes Additional medical history: Anemia. Migraines. Left knee fracture in high school, BRONCHITIS - Surgical History Past Surgical History?: Yes Additional Surgical History: Hysterectomy, tubal ligation - Social History Smoking Status: Never Smoker Substance Use Type: None - Medications Home Medications: Home Medications Medication Instructions Recorded Confirmed Last Taken Type ALBUTEROL Inhaler (OR & NICU) 2 puff IH QID PRN #1 inhalation 11/22/14 Unknown Rx [ProAir HFA Inhaler] Amoxicillin/Potassium Clav 1 tab PO BID #14 tab.er.12h 11/22/14 Unknown Rx [Augmentin XR 1000MG 12HR] traMADol [Ultram 50 MG tab] 50 mg PO Q6HR PRN #20 tablet 11/22/14 Unknown Rx Acetamin/Codeine 120-12Mg/5 ml 5 ml PO TID PRN #80 ml 06/19/16 Unknown Rx [Tylenol/Codeine] Benzonatate [Tessalon Perles] 100 mg PO Q8HR #24 capsule 06/19/16 Unknown Rx Prednisone [predniSONE 10 mg 10 mg PO .TAPER #1 tab.ds.pk 06/19/16 Unknown Rx (6-Day Pack, 21 Tabs)] Acetaminophen/Codeine [Tylenol 1 tab PO Q6H PRN #12 tab 12/01/16 Unknown Rx /Codeine # 3 tab] Ibuprofen [Motrin 800 MG tab] 800 mg PO Q8HR PRN #30 tablet 07/22/17 Unknown Rx Prochlorperazine [Compazine] 10 mg PO Q8HR #20 tablet 07/22/17 Unknown Rx Ibuprofen [Motrin 800 MG tab] 800 mg PO Q8HR PRN #15 tablet 09/02/17 Unknown Rx traMADol [Ultram 50 MG tab] 50 mg PO Q6HR PRN #15 tablet 09/02/17 Unknown Rx ALBUTEROL Inhaler (OR & NICU) 1 puff IH Q4-6H PRN #1 inha 03/11/18 Unknown Rx [ProAir HFA Inhaler] Amoxicillin/Potassium Clav 1 each PO BID #20 tablet 03/11/18 Unknown Rx [Augmentin 875-125 Tablet] Tobramycin [Tobrex] 1 drop OP Q4H #1 bottle 03/11/18 Unknown Rx guaiFENesin/CODEINE [Robitussin AC] 5 ml PO Q6H PRN #120 ml 03/11/18 Unknown Rx predniSONE [Deltasone] 20 mg PO QDAY #5 tab 03/11/18 Unknown Rx Cyclobenzaprine [Flexeril] 10 mg PO QHS PRN #20 tablet 09/01/18 Unknown Rx Naproxen [Naprosyn TAB] 500 mg PO BID PRN #12 tablet 09/01/18 Unknown Rx ED Physical Exam - General Limitations: No Limitations General appearance: alert, in no apparent distress - Head Head exam: Present: atraumatic, normocephalic - Eye Eye exam: Present: normal appearance - ENT ENT exam: Present: mucous membranes moist - Neck Neck exam: Present: normal inspection - Respiratory Respiratory exam: Present: normal lung sounds bilaterally. Absent: respiratory distress - Cardiovascular Cardiovascular Exam: Present: regular rate, normal rhythm. Absent: systolic murmur, diastolic murmur, rubs, gallop - GI/Abdominal GI/Abdominal exam: Present: soft, normal bowel sounds - Extremities Exam Extremities exam: Present: normal inspection - Back Exam Back exam: Present: normal inspection - Neurological Exam Neurological exam: Present: alert, oriented X3 - Psychiatric Psychiatric exam: Present: normal affect, normal mood - Skin Skin exam: Present: warm, dry, intact, normal color. Absent: rash ED Medical Decision Making - Lab Data Result diagrams: 09/01/18 13:53 09/01/18 13:53 - Radiology Data Radiology results: report reviewed, image reviewed FINDINGS: Cardiac and mediastinal contours are unremarkable. No focal pulmonary infiltrate identified. No pleural fluid collection seen. No displaced acute rib fractures are identified Within the proximal left humerus there are scattered sclerotic foci with poorly defined margins which extends into the cortex. Similar findings are seen within the right humeral head with sclerotic foci. Additional similar-appearing foci are present within these glenoid of the scapula. IMPRESSION: Sclerotic foci seen within the humeral heads and glenoid portion of the right scapula. There is concern for underlying metastatic disease. Consider bone scan for further evaluation Otherwise negative study. This document is electronically signed by Kvng Forde MD., September 01 2018 05:30:43 PM ET Transcribed By: JEAN Dictated By: BARTOLO FORDE MD Electronically Authenticated By: BARTOLO FORDE MD Signed Date/Time: 09/01/18 1732 - Medical Decision Making Is a[age]-year-old female presents with myalgia/costochondritis Discussed all findings with the patient. CBC, CMP, chest x-ray are all within normal limits. Discussed the patient to afford heavy lifting, discussed proper rest daily and follow-up with primary care physician. Discussed the patient have any worsening symptoms to return to the ED immediately. Patient is in no acute distress she received Motrin and Flexeril in the ED. Vital signs as follows: Temperature was 97.9, heart rate 88, O2 sat 97%, respiratory rate 18, blood pressure 141/85 Critical care attestation.: If time is entered above; I have spent that time in minutes in the direct care of this critically ill patient, excluding procedure time. ED Disposition Clinical Impression: Myalgia, Rib pain on right side Disposition: -01 TO HOME OR SELFCARE Is pt being admited?: No Does the pt Need Aspirin: No Condition: Stable Instructions: Chest Pain (ED), Trigger Point Pain (ED), Abdominal Pain (ED), Musculoskeletal Pain (ED) Additional Instructions: Make sure to follow up with the primary care physician as discussed. Take all your medications as you've been prescribed. If you have any worsening symptoms or develop new symptoms please return to ED immediately. Prescriptions: Cyclobenzaprine [Flexeril] 10 mg PO QHS PRN #20 tablet PRN Reason: Muscle Spasm Naproxen [Naprosyn TAB] 500 mg PO BID PRN #12 tablet PRN Reason: Pain Referrals: MARY CHANDRA MD [Primary Care Provider] - 3-5 Days [facility] [Provider Group] - 3-5 Days [facility] [Outside] - 3-[address] [facility] [Outside] - 3-5 Days Forms: Accompanied Note, Work/School Release Form(ED) Time of Disposition: 18:16
[2018-09-01] MEDS ORDERED: IBUPROFEN PO ONE (16:25)
--- NOTE | 2018-09-01 17:32 | XRay Report ---
PROCEDURE: XR RIBS BILAT W/PA CHEST 4+V TECHNIQUE: Bilateral RIBS with frontal view of the chest HISTORY: pain bilat chest COMPARISONS: FINDINGS: Cardiac and mediastinal contours are unremarkable. No focal pulmonary infiltrate identified. No pleur al fluid collection seen. No displaced acute rib fractures are identified Within the proximal left humerus there are scattered sclerotic foci with poorly defined margins which extends into the cortex. Similar findings are seen within the right humeral head with sclerotic foci . Additional similar-appearing foci are present within these glenoid of the scapula. IMPRESSION: Sclerotic foci seen within the humeral heads and glenoid portion of the right scapula. There is aaron rn for underlying metastatic disease. Consider bone scan for further evaluation Otherwise negative study. This document is electronically signed by Kvng Rinaldi MD., September 01 2018 05:30:43 PM ET
[2018-09-01] MEDS ORDERED: FLEXERIL PO ONE (18:39)
== END 2018-09-01 18:33 | disposition home or self-care (01) ==
LOC: ED 13:09
DX: R07.81 Pleurodynia (principal); G43.909 Migraine, unspecified, not intractable, without status migrainosus; J45.909 Unspecified asthma, uncomplicated; Z90.710 Acquired absence of both cervix and uterus; Z98.51 Tubal ligation status; Z79.899 Other long term (current) drug therapy; Z88.1 Allergy status to other antibiotic agents
CPT/HCPCS: 36415; 71111; 80048; 80076; 83690; 85025; 99283

== ENCOUNTER 2019-03-18 05:57 | Day surgery (SDC) | payer BC ==
[2019-03-18] MEDS ORDERED: BACTERIOSTATIC SODIUM CHLORIDE 0.9% 30 ML VIAL INFILTRATI ONE (06:48)
[2019-03-18] MEDS ORDERED: ceFAZolin/Water 2 GM/20 ML 2 GM/20 ML SYRINGE IV ONE (07:00)
[2019-03-18] MEDS ORDERED: LIDOCAINE MPF (2%) 20 MG/1 ML VIAL 5 ML ONE (07:17)
[2019-03-18] MEDS ORDERED: MIDAZOLAM 2 MG/2 ML INJ ONE ×2 (07:18→07:23)
[2019-03-18] MEDS ORDERED: fentaNYL 100 MCG/2 ML INJ ONE (07:18)
[2019-03-18] MEDS ORDERED: PROPOFOL 200 MG/20 ML VIAL IV ONE ×3 (07:18→08:39)
[2019-03-18] MEDS ORDERED: BUPIVACAINE/PF (0.25%) 2.5 MG/ML 30 ML VIAL INFILTRATI ONE ×3 (07:19→08:15)
[2019-03-18] MEDS ORDERED: LIDOCAINE (1%) 10 MG/1 ML VIAL 20 ML MDV ONE (07:19)
[2019-03-18] MEDS ORDERED: SODIUM CHLORIDE 0.9% 100 ML ONE (07:19)
[2019-03-18] MEDS ORDERED: HEPARIN 10,000 UNITS/10 ML VIAL ONE (07:19)
[2019-03-18] MEDS ORDERED: SODIUM CHLORIDE P/F VIAL 10 ML 0 ML ONE (07:20)
[2019-03-18] MEDS ORDERED: SODIUM CHLORIDE 0.9% 1000 ML 1,000 ML ONE (07:22)
[2019-03-18] MEDS ORDERED: FAMOTIDINE 20 MG/2 ML INJ IV ONE (07:22)
--- NOTE | 2019-03-18 07:25 | Anesthesia Day of Surgery ---
Anesthesia Day of Surgery - Day of Surgery Patient Examined: Yes Patient H&P Reviewed: Yes Patient is NPO: Yes
--- NOTE | 2019-03-18 07:25 | Anesthesia Consultation ---
Anesthesia Consult and Med Hx Date of service: 03/18/19 - Airway Anesthetic Teeth Evaluation: Partials (top) ROM Head & Neck: Adequate Mental/Hyoid Distance: Adequate Mallampati Class: Class III Intubation Access Assessment: Possibly Difficult - Pre-Operative Health Status ASA Pre-Surgery Classification: ASA3 - Pulmonary Hx Asthma: Yes (PRN INH) - Central Nervous System Hx Psychiatric Problems: No - Endocrine Hx Non-Insulin Dependent Diabetes: Yes - Hematic Hx Anemia: Yes (RESOLVED AFTER HYSTERECTOMY 2011) - Other Systems Hx Alcohol Use: No Hx Substance Use: No Hx Cancer: Yes Hx Obesity: Yes (BMI 34.4)
[2019-03-18] MEDS ORDERED: SODIUM CHLORIDE 0.9% 1000 ML 1,000 ML IV SCH (07:30)
[2019-03-18] MEDS ORDERED: FAMOTIDINE 20 MG/2 ML INJ IV NR (08:00)
[2019-03-18] MEDS ORDERED: MIDAZOLAM 2 MG/2 ML INJ IV NR (08:00)
[2019-03-18] MEDS ORDERED: LIDOCAINE (1%) 10 MG/1 ML VIAL 20 ML MDV INFILTRATI ONE ×2 (08:15)
[2019-03-18] MEDS ORDERED: SODIUM CHLORIDE 0.9% 100 ML IVPB IV ONE (08:20)
[2019-03-18] MEDS ORDERED: HEPARIN 10,000 UNITS/10 ML VIAL IV ONE ×2 (08:20→08:57)
[2019-03-18] MEDS ORDERED: ONDANSETRON 4 MG/2 ML INJ ONE (09:02)
--- NOTE | 2019-03-18 09:24 | Short Stay Summary ---
Short Stay Documentation Date of service: 03/18/19 - History Principal diagnosis: left breast cancer H&P: obtained from office - Allergies and Medications Current Medications: Allergies erythromycin base Allergy (Verified 03/16/19 13:31) Itching Home Medications Medication Instructions Recorded Confirmed Last Taken Type Albuterol Sulfate [Proair 90 mcg IH Q4H PRN 03/16/19 03/18/19 03/18/19 07:35 His tory Respiclick] AtorvaSTATin [Lipitor] 20 mg PO QHS 03/16/19 03/18/19 03/17/19 20:00 History Ergocalciferol [Vitamin D2] 1 cap PO QWEEK 03/16/19 03/18/19 03/11/19 09:00 History Fluticasone [Flonase] 1 spray NS QDAY 03/16/19 03/18/19 03/16/19 09:00 History Loratadine 10 mg PO DAILY 03/16/19 03/18/19 03/17/19 09:00 History metFORMIN [Glucophage] 500 mg PO BID 03/16/19 03/16/19 Unknown History Active Medications Famotidine (Pepcid) 20 mg IV PREOP NR Stop: 03/18/19 21:00 Last Admin: 03/18/19 07:25 Dose: 20 mg Documented by: Sodium Chloride (Nacl 0.9% 1000 Ml) 1,000 mls @ 100 mls/hr IV DIRECT CHANTEL Last Admin: 03/18/19 07:25 Dose: 100 mls/hr Documented by: Midazolam HCl (Versed) 2 mg IV PREOP NR Stop: 03/18/19 23:59 Last Admin: 03/18/19 07:30 Dose: 2 mg Documented by: - Brief post op/procedure progress note Date of procedure: 03/18/19 Pre-op diagnosis: left breast cancer Post-op diagnosis: same Procedure: placement of right internal jugular port a cath with mindray ultrasound guidance Anesthesia: MAC, local Findings: good placement of port without PTX good blood return and flushes easily Surgeon: JUNO DARDEN Estimated blood loss: minimal Pathology: none Condition: stable - Hospital course Hospital course: Pt observed in PACU and discharged to home in stable condition. - Disposition Condition at discharge: Good Short Stay Discharge Plan Activity: no restrictions Diet: regular Wound: open to air, per your surgeon's advice Additional Instructions: SEE PRINTED DISCHARGE INSTRUCTIONS Follow up with: [facility] MD IMANI [Primary Care Provider] - 7 Days JUNO DARDEN DO [Staff Physician] - 14 Days Prescriptions: cephALEXin [Keflex] 500 mg PO Q12HR #14 cap HYDROcodone/APAP 5-325 [[place] 5/325] 1 each PO Q6HR PRN #15 tablet PRN Reason: Pain , Severe (7-10)
[2019-03-18] MEDS ORDERED: HYDROmorphone 1 MG/1 ML INJ ONE (09:32)
[2019-03-18] MEDS: HYDROmorphone 1 MG/1 ML INJ IV PRN ×2 (09:35→09:45)
[2019-03-18] MEDS ORDERED: ONDANSETRON 4 MG/2 ML INJ IV PRN (09:38)
[2019-03-18] MEDS ORDERED: HYDROcodone/ACETAMINOPHEN 5-325 MG TAB PO PRN (09:50)
--- NOTE | 2019-03-18 09:50 | Fluoroscopy Report ---
CHEST 1 VIEW INDICATION: LT BREAST CX (RT INFUSAPORT INSERT.). COMPARISON: Chest x-ray from 09/01/2018 FINDINGS: Support devices: Right-sided Port-A-Cath has been placed with tip at the cavoatrial junction. Heart: Within normal limits. Lungs/Pleura: No acute air space or interstitial disease. No pneumothorax. Additional findings: None. IMPRESSION: 1. Right-sided Port-A-Cath as above. 2.9 minutes of fluoroscopic time was provided for placement of t his catheter. Signer Name: Laith Ness MD Signed: 03/18/2019 9:46 AM Workstation Name: [id number]
[2019-03-18 10:04] VITALS: BP 137/80
--- NOTE | 2019-03-19 12:57 | Operative Report ---
Operative Report Operative Report: Date of procedure: 03/18/19 Pre-op diagnosis: left breast cancer Post-op diagnosis: same Procedure: Placement of right internal jugular port a cath with mindray ultrasound guidance Anesthesia: MAC, local Findings: good placement of port without PTX good blood return and flushes easily Surgeon: JUNO DARDEN Estimated blood loss: minimal Pathology: none Condition: stable Hospital course: Pt observed in PACU and discharged to home in stable condition. HPI and indication: Patient is a 54 yo F who has been diagnosed with right sided breast cancer. The patient is seen by Dr. Kothari and deemed a candidate for chemotherapy. All of the risks associated with port placement were discussed with the patient including but not limited to pneumothorax, infection, bleeding, malpositioned port, injury to other structures. The patient understands and all questions were answered. Consent was signed and placed on chart. Procedure in detail: The patient was identified in the preoperative area, taken back to operating room, placed on operating table in supine position. After anesthesia was induced both arms were tucked and upper chest and neck were prepped and draped in usual sterile fashion. A timeout was performed. The was placed in Trendelenburg position. Local anesthetic was infiltrated into the skin at the intended puncture site. The right subclavian vein was identified on ultrasound and one attempt was made to access it. Due to the anatomy it could not be accessed. The right internal jugular vein was identified using ultrasound and was accessed on the first stick. There was return of dark red, nonpulsatile blood. The wire was threaded under fluoroscopy without resistance and positioning confirmed. The needle was then removed. Local anesthetic was infiltrated into the skin at the intended incision site. Using a 15 blade, an incision was made in the right upper chest and dissection carried down through the skin and subcutaneous tissue using Bovie electrocautery. Hemostasis was achieved along the way. A pocket for the port was then created bluntly and with electrocautery. The catheter was flushed and tunneled from the pocket to the wire. A breakaway catheter/dilator sheath then inserted over the wire under fluoroscopy, and the wire and dilator removed. The catheter was then inserted through the breakaway catheter which was then removed. The catheter sat flush under the skin. Using continuous fluoroscopy, the catheter was pulled back until the tip was visualized in the right atrium. The catheter was then cut to size and the port attached in the usual fashion. The port was then sutured into place to the pre-pectoral fascia using 2-0 Vicryl interrupted sutures. The wound was irrigated and hemostasis ensured. The port was tested with heparinized saline and there was return of blood and it flushed easily. The port was then instilled with 3000 units of straight heparin. The deep dermal layer was then closed with interrupted 3-0 Vicryl stitches. The skin incisions were closed with 4-0 Monocryl subcuticular stitches and skin glue. Intraoperative chest x-ray did show good positioning of the port, without evidence of pneumothorax. At the end of the case, all sponge, instrument, sharp counts were correct 2. The patient was awoken from anesthesia and taken to PACU in stable condition.
== END 2019-03-18 10:55 | disposition home or self-care (01) ==
LOC: OR 05:57
PROVIDERS: ATTEND Surgery
DX: C50.912 Malignant neoplasm of unspecified site of left female breast (principal); J32.9 Chronic sinusitis, unspecified; E78.00 Pure hypercholesterolemia, unspecified; J45.909 Unspecified asthma, uncomplicated; E66.9 Obesity, unspecified; E11.9 Type 2 diabetes mellitus without complications; Z79.899 Other long term (current) drug therapy; Z88.8 Allergy status to other drugs, medicaments and biological substances; Z79.84 Long term (current) use of oral hypoglycemic drugs; Z68.34 Body mass index [BMI] 34.0-34.9, adult; Z98.51 Tubal ligation status; Z90.710 Acquired absence of both cervix and uterus; Z98.890 Other specified postprocedural states; Z86.2 Personal history of diseases of the blood and blood-forming organs and certain disorders involving the immune mechanism
CPT/HCPCS: 36561; 77001; 82962; C1769; C1788; J0690; J1170; J1644; J2250; J2405; J2704; J3010; J7030

== ENCOUNTER 2019-03-22 11:14 | Outpatient (CLI) | payer BC ==
[2019-03-22 13:11] LABS: Blood Urea Nitrogen 10 mg/dL (7-17)
--- NOTE | 2019-03-22 15:13 | Cat Scan Report ---
CT CHEST WITH CONTRAST HISTORY: Recently diagnosed left breast cancer and suspected metastatic disease. COMPARISON: No relevant comparison imaging. TECHNIQUE: CT images of the chest were obtained following administration of intravenous contrast.Note : All CT scans at this location are performed using CT dose reduction employed for ALARA by means of automated exposure control. CONTRAST: 100 ml of Omnipaque 300. Consent was obtained prior to the administration of the contrast. FINDINGS: Heart and Pericardium: No significant abnormality. Vasculature: No significant abnormality. Lymphatics: Several small mediastinal lymph nodes and right hilar lymph nodes. The largest is in the inferior right hilum and measures 12 mm. Enlarged left axillary lymph nodes are suspicious for metast asis. Several suspicious small left subpectoral lymph nodes. Lungs: Clear with no pulmonary nodule or mass. No pleural effusion. Trachea and Bronchi: No significant abnormality. Soft tissues: Several left breast masses are suspicious for multicentric tumor. A single retroareolar biopsy clip in the left breast. Osseous Structures:Too numerous to count mixed lytic and sclerotic bone lesions involving the thoraci c spine at all levels, several bilateral ribs, sternum, scapulae and left humerus. A 16 mm lytic lesi on at the posterior margin of the T8 vertebral body appears to have broken through the posterior elpidio ex of the vertebral body. Several additional lesions demonstrate erosion of the posterior vertebral b nakul cortex and these are identified at T6, T4 and T3. No fracture. Additional findings: The upper abdomen is remarkable for benign hepatic cysts. IMPRESSION: 1. Left breast cancer with left axillary and subpectoral james metastasis. 2. Possible mediastinal and right hilar james metastasis. 3. Diffuse skeletal metastasis mixed lytic and sclerotic lesions involving the spine, ribs, scapulae, sternum and left humerus. Several thoracic lesions erode the posterior cortex of vertebral bodies. H owever, no fractures and no obvious cord compression. I discussed the findings with Dr. Kothari on 03/22/2019 at 3:00 PM EST. Signer Name: Dean Mcclendon MD Signed: 03/22/2019 3:09 PM Workstation Name: [id number]
--- NOTE | 2019-03-22 15:30 | Cat Scan Report ---
CT ABDOMEN AND PELVIS WITH CONTRAST HISTORY: C50.912 MALIGNANT NEOPLASM OF UNSPECIFIED SITE OF LEFT FEMALE BRICE COMPARISON: No relevant comparative imaging. TECHNIQUE: Routine abdominal and pelvic CT exam performed following intravenous contrast administrat ion. Note: All CT scans at this location are performed using CT dose reduction employed for ALARA by means of automated exposure control. CONTRAST: 100 mL Omnipaque 300. Consent was obtained prior to the administration of contrast. FINDINGS: CT ABDOMEN: Lung Bases: Clear. Liver: A few benign cysts. The largest is in the lateral segment of the left lobe and measures 2.8 cm . Biliary: No significant abnormality. Spleen: No significant abnormality. Unenlarged. Pancreas: No significant abnormality. Adrenals: No significant abnormality. Kidneys: No significant abnormality. Lymphatics: No lymphadenopathy. Vasculature: No significant abnormality. Bowel/Peritoneum: No significant abnormality. No free air. No free fluid. Normal appendix. CT PELVIC: : Status post hysterectomy. Normal right ovary. No adnexal mass or free fluid. Osseous Structures: Too numerous to count mixed lytic and sclerotic bone lesions involving the spine, pelvis, sacrum and both hips. Largest lesion is in the roof of the right acetabulum and measures 3.3 cm. No fractures. Additional Findings: None IMPRESSION: 1. Diffuse skeletal metastasis. 2. No evidence of hepatic or abdominopelvic james metastasis. Signer Name: Dean Mcclendon MD Signed: 03/22/2019 3:26 PM Workstation Name: [id number]
--- NOTE | 2019-03-22 15:41 | Nuclear Medicine Report ---
NM bone scan whole body INDICATION / CLINICAL INFORMATION: C50.912 MALIGNANT NEOPLASM OF UNSPECIFIED SITE OF LEFT FEMALE BRICE. TRACER: Technetium 99m MDP 26 mCi IV injection. COMPARISON: CT chest, abdomen and pelvis same day. FINDINGS: Scattered uptake at both shoulders, AC joints, ribs, sternum, spine, bony pelvis and scattered within the femurs. Uptake is also seen at the right knee, both feet and the right great toe. IMPRESSION: 1. Multifocal metabolically active bony metastatic disease. 2. Scattered DJD. Signer Name: Lawrence Gibbs MD Signed: 03/22/2019 3:36 PM Workstation Name: [id number]
== END 2019-03-22 11:15 | disposition home or self-care (01) ==
LOC: NM 11:14
PROVIDERS: ATTEND Internal Medicine Hematology & Oncology
DX: M19.072 Primary osteoarthritis, left ankle and foot (principal); M19.071 Primary osteoarthritis, right ankle and foot; C50.912 Malignant neoplasm of unspecified site of left female breast; K76.89 Other specified diseases of liver; N63.20 Unspecified lump in the left breast, unspecified quadrant; M89.9 Disorder of bone, unspecified; M19.019 Primary osteoarthritis, unspecified shoulder; M47.819 Spondylosis without myelopathy or radiculopathy, site unspecified; M17.11 Unilateral primary osteoarthritis, right knee; M16.10 Unilateral primary osteoarthritis, unspecified hip; Z90.710 Acquired absence of both cervix and uterus
CPT/HCPCS: 36415; 71260; 74177; 78306; 82565; 84520; A9503; Q9967

== ENCOUNTER 2019-10-13 08:37 | Outpatient (CLI) | payer BC ==
--- NOTE | 2019-10-13 09:49 | Ultrasound Report ---
EXAMINATION: Right Limited Breast Ultrasound, 10/13/2019 INDICATION: The patient presents for biopsy of a right breast mass. COMPARISON: Right breast ultrasound performed on 09/21/2019. FINDINGS: Targeted ultrasound evaluation was performed of the area of interest. Preliminary ultrasou nd of the right breast did not demonstrate the previously described right breast mass or any other si gnificant abnormality amenable to biopsy at this time. I discussed these findings with the patient an d recommended continued self breast exam and further imaging of the breasts as clinically indicated. She agreed with this recommendation and will follow-up with Dr. Lee as scheduled. IMPRESSION: No sonographic evidence of a mass or other significant abnormality in the right breast amenable to bi opsy at this time. Please see the above discussion. Follow up recommendation: Clinical exam BI-RADS Category 1: Negative. Signer Name: Ace Rosenbaum MD Signed: 10/13/2019 9:45 AM Workstation Name: [id number]
== END 2019-10-13 08:38 | disposition home or self-care (01) ==
LOC: SPVWC 08:37
PROVIDERS: ATTEND Surgery
DX: R92.8 Other abnormal and inconclusive findings on diagnostic imaging of breast (principal)

== ENCOUNTER 2019-11-04 08:01 | Outpatient (CLI) | payer BC ==
[2019-11-04 09:26] LABS: Blood Urea Nitrogen 15 mg/dL (7-17)
--- NOTE | 2019-11-04 11:05 | Cat Scan Report ---
CT CHEST, ABDOMEN, AND PELVIS WITH IV CONTRAST INDICATION / CLINICAL INFORMATION: MET BR CANCER/COMPARE TO LAST ONE. TECHNIQUE: Axial CT images were obtained through the chest, abdomen, and pelvis after IV contrast. All CT scans at this location are performed using CT dose reduction for ALARA by means of automated exposure contr ol. COMPARISON: 07/22/2019 FINDINGS: HEART: No significant abnormality. THORACIC AORTA: No significant abnormality. MEDIASTINUM and LISSETH: No significant abnormality. LUNGS: Interval development of linear atelectasis in the right middle lobe and left lung base. Multi ple tiny noncalcified soft tissue density nodules in the right middle lobe perifissural location, the largest measuring 3 mm are stable since prior exam (series 6 image 32). PLEURA: No significant pleural effusion. No pneumothorax. ADDITIONAL CHEST FINDINGS: Previously noted left axillary lymphadenopathy stable since prior exam, th e largest node measuring 1.6 cm short axis. Retrocrural lymph node measuring 6 mm short axis is stabl e since prior exam. Irregular soft tissue density in the left breast measuring 4.3 x 1.3 cm and demon strating internal calcifications is smaller when compared to exam dated 03/22/2019. LIVER: Bilobar hepatic cysts are unchanged from prior exam. No evidence of new lesions. GALLBLADDER: No significant abnormality. BILE DUCTS: No significant abnormality. PANCREAS: No significant abnormality. SPLEEN: No significant abnormality. ADRENALS: No significant abnormality. RIGHT KIDNEY / URETER: No significant abnormality. LEFT KIDNEY / URETER: No significant abnormality. STOMACH and SMALL BOWEL: Small hiatal hernia. COLON: No significant abnormality. APPENDIX: No significant abnormality. PERITONEUM: No free fluid. No free air. No fluid collection. LYMPH NODES: No significant adenopathy. AORTA and ARTERIES: No significant abnormality. IVC and VEINS: Right chest wall Port-A-Cath in stable position. URINARY BLADDER: No significant abnormality. REPRODUCTIVE ORGANS: Prior hysterectomy. ADDITIONAL FINDINGS: Diastasis recti. SKELETAL SYSTEM: Widespread mixed lytic and blastic osseous metastases are again noted similar to [place] or exam. No evidence of pathologic fractures. IMPRESSION: 1. Disease stability. Please see above for full details. Signer Name: eMmo Soto MD Signed: 11/04/2019 11:01 AM Workstation Name: [email or web address]
--- NOTE | 2019-11-04 12:54 | Nuclear Medicine Report ---
NUCLEAR MEDICINE BONE SCAN, WHOLE BODY INDICATION: MET BR CA/RESTAGING EVAL/COMPARE TO LAST ONE. TECHNIQUE: 26 mCi of Tc-99m MDP were injected IV. Whole body images were obtained. COMPARISON: CT chest abdomen pelvis performed today. Prior bone scan 07/22/2019 FINDINGS: Skeletal Structures: No focal areas of asymmetric activity. Mild, relatively symmetric, periarticular activity which is likely degenerative. Skeletal Lesions: Moderate increased tracer activity both proximal humeri and glenoids, unchanged. Mi ld mild increased tracer activity both distal femurs, L4 and L5 vertebral bodies and several bilatera l ribs characteristic for confirmed blastic skeletal metastases on.. Soft Tissues: Normal. Kidneys: Normal, symmetric activity. Additional Findings: None. IMPRESSION: 1. Diffuse osseous skeletal metastases have slightly decreased tracer activity when compared to prior study.. Signer Name: Raymond Bates MD Signed: 11/04/2019 12:49 PM Workstation Name: [id number]
== END 2019-11-04 08:02 | disposition home or self-care (01) ==
LOC: NM 08:01
PROVIDERS: ATTEND Internal Medicine Hematology & Oncology
DX: C79.51 Secondary malignant neoplasm of bone (principal); R91.1 Solitary pulmonary nodule; K44.9 Diaphragmatic hernia without obstruction or gangrene; K76.89 Other specified diseases of liver; C50.912 Malignant neoplasm of unspecified site of left female breast; Z90.710 Acquired absence of both cervix and uterus
CPT/HCPCS: 36415; 71260; 74177; 78306; 82565; 84520; A9503; Q9967

== ENCOUNTER 2020-02-01 09:24 | Outpatient (CLI) | payer BC ==
[2020-02-01 10:52] LABS: Blood Urea Nitrogen 12 mg/dL (7-17)
--- NOTE | 2020-02-01 13:42 | Nuclear Medicine Report ---
NUCLEAR MEDICINE BONE SCAN, WHOLE BODY INDICATION / CLINICAL INFORMATION: C50.912 LEFT BREAST CA. TECHNIQUE: 25.2 mCi of Tc-99m MDP were injected IV. Images were obtained of the whole body. COMPARISON: Previous bone scans on 11/04/2019 and 07/22/2019 FINDINGS: ARTICULAR STRUCTURES: Mild, relatively symmetric, periarticular activity which is likely degenerative . SKELETAL LESIONS: Again demonstrated is moderate increased tracer activity in the proximal humeri, pe lvis, multiple vertebral bodies, and several bilateral ribs. Findings appear similar to the prior glenna dy. SOFT TISSUES: Normal. KIDNEYS: Normal. ADDITIONAL FINDINGS: None. IMPRESSION: 1. Largely unchanged appearance of scattered skeletal metastatic lesions without appreciable change f rom 11/04/2019. Signer Name: Mike Gooden MD Signed: 02/01/2020 1:37 PM Workstation Name: [id number]
--- NOTE | 2020-02-01 15:08 | Cat Scan Report ---
CT CHEST, ABDOMEN, AND PELVIS WITH IV CONTRAST INDICATION / CLINICAL INFORMATION: Malignant neoplasm of left breast TECHNIQUE: Axial CT images were obtained through the chest, abdomen, and pelvis after 100 mL Omnipaque [address] All [address] scans at this location are performed using CT dose reduction for ALARA by means of aut omated exposure control. COMPARISON: CT chest abdomen pelvis dated 11/04/2019. FINDINGS: HEART: No significant abnormality. THORACIC AORTA: No significant abnormality. MEDIASTINUM and LISSETH: No significant abnormality. LUNGS: No acute air space or interstitial disease. Multiple tiny 2-3 mm perifissural pulmonary nodul es within the right middle lobe are stable from the prior CT. PLEURA: No significant pleural effusion. No pneumothorax. ADDITIONAL CHEST FINDINGS: Left axillary lymphadenopathy is stable, with the largest node measuring 1 .1 cm in short axis. The soft tissue density within the left breast is also unchanged in size. LIVER: Multiple bilateral lobar hepatic cysts are unchanged. No new hepatic lesion. GALLBLADDER: No significant abnormality. BILE DUCTS: No significant abnormality. PANCREAS: No significant abnormality. SPLEEN: No significant abnormality. ADRENALS: No significant abnormality. RIGHT KIDNEY / URETER: No significant abnormality. LEFT KIDNEY / URETER: No significant abnormality. STOMACH and SMALL BOWEL: No significant abnormality. COLON: No significant abnormality. APPENDIX: No significant abnormality. PERITONEUM: No free fluid. No free air. No fluid collection. LYMPH NODES: No significant adenopathy. AORTA and ARTERIES: No significant abnormality. IVC and VEINS: No significant abnormality. URINARY BLADDER: No significant abnormality. REPRODUCTIVE ORGANS: No significant abnormality. ADDITIONAL FINDINGS: None. SKELETAL SYSTEM: Widespread mixed lytic and sclerotic osseous metastases are seen again seen througho ut the skeleton. No pathologic fracture is identified. IMPRESSION: 1. Stable disease burden without evidence of progression. 2. No acute abnormality. Signer Name: Jasbir Franklin MD Signed: 02/01/2020 3:04 PM Workstation Name: [id number]
== END 2020-02-01 09:25 | disposition home or self-care (01) ==
LOC: NM 09:24
PROVIDERS: ATTEND Internal Medicine Hematology & Oncology
DX: C50.912 Malignant neoplasm of unspecified site of left female breast (principal); K76.89 Other specified diseases of liver; R91.8 Other nonspecific abnormal finding of lung field
CPT/HCPCS: 36415; 71260; 74177; 78306; 82565; 84520; A9503; Q9967

== ENCOUNTER 2020-03-28 09:41 | Outpatient (CLI) | payer BC ==
--- NOTE | 2020-03-28 12:11 | Mammography Report ---
BILATERAL DIGITAL DIAGNOSTIC MAMMOGRAM WITH CAD , 03/28/2020 BILATERAL COMPLETE BREAST ULTRASOUND CLINICAL INFORMATION / INDICATION: F/U Mammogram/Lt Breast Cancer TECHNIQUE: Digital bilateral mammographic imaging was performed. Complete ultrasound of all four (4) quadrants was performed. This examination was interpreted with the benefit of Computer-Aided Detectio n (CAD) analysis. COMPARISON: Prior bilateral mammogram 09/21/2019 as well as prior bilateral ultrasound 09/21/2019. FINDINGS: Breast Density: There are scattered areas of fibroglandular density. MAMMOGRAPHIC FINDINGS: Left breast: The biopsy-proven malignancy in the central left breast is slightly smaller compared wit h the most recent mammogram of 09/21/2019. Although exact measurements are difficult, the entire area of involvement appears to represent approximately 9.8 x 9.1 x 9.5 cm. . Some of the included measurem ent made may be posttreatment change and not actual tumor. No other significant finding within the le ft breast. Right breast: The previously noted oval mass in the upper inner quadrant of the right breast at appro ximately 2:00 is stable in appearance. The lobulated mass seen at 9:00 is stable in size and appearan ce. The mass seen just lateral to the areolar with associated biopsy clip remains stable. No new fin dings within the right breast. ULTRASOUND FINDINGS: Left breast: There is an oval solid irregular mass noted measuring 1.6 x 1.2 x 2.1 cm. Margins are ir regular. This would correspond to site of biopsy-proven malignancy mammographically. Additionally, at 2:00, 11 cm from nipple, there is a 9 x 4 x 8 mm irregular mass with posterior shadowing. This mass has malignant features. In the subareolar area of the breast there is an oval irregular solid mass me asuring 1.8 x 1.1 x 2.3 cm. This would be in the expected area of biopsy-proven malignancy. Additiona lly, in the left axilla there is at least one lymph node with cortical thickening of 5 mm, consistent with metastatic adenopathy. However, this lymph node appears improved in size compared to the ultras ound performed on 09/21/2019. Right breast: At 1:00, 7 cm from the nipple, there is a benign oval smoothly marginated solid mass me asuring 1.1 x 0.5 x 1.5 cm. This would correlate with the benign-appearing mass in the upper inner qu adrant. Additionally, at 8:00, 4 cm from the nipple there is an oval solid slightly irregular mass me asuring 1.7 x 0.8 x 1.4 cm. This contains biopsy clip and represents previously biopsy-proven benign mass. Also at 8:00, 7 cm from the nipple, there is an oval lobulated solid mass measuring 1.2 x 0.7 x 0.9 cm. Additionally, there is benign-appearing oval smoothly marginated mass in the subareolar vance on measuring 6 x 3 x 11 mm. IMPRESSION: 1. Biopsy-proven left breast malignancy appears slightly decreased in size. No new findings within th e left breast. Improving left axillary adenopathy. 2. Multiple masses are again noted in the right breast all of which appear stable mammographically an d sonographically. Continued follow-up is recommended. Follow up recommendation: Continued surgical consult for known left breast carcinoma. BI-RADS Category 6: Known Biopsy-Proven Malignancy. A "normal" or negative report should not discourage follow up or biopsy of a clinically significant f inding. A written summary of these findings will be mailed to the patient. The patient will be entered into a mammography reporting system which will generate a reminder letter for the patient's next appointmen t at the appropriate interval. According to the [employer], yearly mammograms are recommended starting at age 40 and continuing as long as a woman is in good health. Breast MRI is recommended for women with an fabiano roximately 20-25% or greater lifetime risk of breast cancer, including women with a strong family his tory of breast or ovarian cancer and women who have been treated for Hodgkin's disease. Signer Name: Flower Sewell MD Signed: 03/28/2020 12:06 PM Workstation Name: [email or web address]
== END 2020-03-28 09:42 | disposition home or self-care (01) ==
LOC: SPVWC 09:41
PROVIDERS: ATTEND Surgery
DX: C50.412 Malignant neoplasm of upper-outer quadrant of left female breast (principal); N63.12 Unspecified lump in the right breast, upper inner quadrant; N63.21 Unspecified lump in the left breast, upper outer quadrant; Z85.3 Personal history of malignant neoplasm of breast
CPT/HCPCS: 77066

== ENCOUNTER 2020-05-01 08:27 | Outpatient (CLI) | payer BC ==
[2020-05-01 10:32] LABS: Blood Urea Nitrogen 14 mg/dL (7-17)
--- NOTE | 2020-05-01 11:52 | Cat Scan Report ---
CT CHEST, ABDOMEN, AND PELVIS WITHOUT AND WITH IV CONTRAST INDICATION / CLINICAL INFORMATION: MALIGNANT NEOPLASM OF UNSPECIFIED SITE OF LEFT FEMALE BREAST. TECHNIQUE: Axial CT images were obtained through the chest, abdomen, and pelvis before and after IV contrast. Al l CT scans at this location are performed using CT dose reduction for ALARA by means of automated exp osure control. COMPARISON: 02/01/2020. FINDINGS: HEART: No significant abnormality. THORACIC AORTA: No significant abnormality. MEDIASTINUM and LISSETH: No significant abnormality. LUNGS: No acute air space or interstitial disease. The multiple tiny 2-3 mm perifissural pulmonary n odules in the right middle lobe are unchanged. No new pulmonary nodule or mass is identified. PLEURA: No significant pleural effusion. No pneumothorax. ADDITIONAL CHEST FINDINGS: Left axillary lymphadenopathy is unchanged. The soft tissue density in the left breast is also stable. LIVER: Multiple bilateral hepatic cysts are stable. No new hepatic lesion is identified. GALLBLADDER: No significant abnormality. BILE DUCTS: No significant abnormality. PANCREAS: No significant abnormality. SPLEEN: No significant abnormality. ADRENALS: No significant abnormality. RIGHT KIDNEY / URETER: No significant abnormality. LEFT KIDNEY / URETER: No significant abnormality. STOMACH and SMALL BOWEL: No significant abnormality. COLON: No significant abnormality. APPENDIX: No significant abnormality. PERITONEUM: No free fluid. No free air. No fluid collection. LYMPH NODES: No significant adenopathy. AORTA and ARTERIES: No significant abnormality. IVC and VEINS: No significant abnormality. URINARY BLADDER: No significant abnormality. REPRODUCTIVE ORGANS: No significant abnormality. ADDITIONAL FINDINGS: None. SKELETAL SYSTEM: Widespread mixed lytic and sclerotic osseous metastases are seen throughout the skel eton. No pathologic fracture is identified. IMPRESSION: 1. Stable disease burden without evidence of progression. 2. No acute abnormality. Signer Name: Jasbir Franklin MD Signed: 05/01/2020 11:48 AM Workstation Name: [id number]
--- NOTE | 2020-05-01 12:39 | Nuclear Medicine Report ---
NM bone scan whole body INDICATION / CLINICAL INFORMATION: MALIGNANT NEOPLASM OF UNSPECIFIED SITE OF LEFT FEMALE BREAST. TECHNIQUE: Dose / Agent / Route 26.3 mCi technetium MDP, IV COMPARISON: Prior bone scan of 02/01/2020. CT chest/abdomen done earlier today. FINDINGS: Although CT shows very extensive, mostly sclerotic skeletal metastatic disease, bone scan demonstrate s only mild, diffuse but slightly inhomogeneous increased activity throughout the skeleton. Appearanc e has not changed significantly since the exam 3 months ago. IMPRESSION: 1. Diffuse skeletal metastatic disease, unchanged since January 2020. Because this disease causes mi ld and fairly homogeneous increased uptake, CT is a much better method of following the metastatic sk eletal disease in this patient. Signer Name: Gurwinder Quiroz MD Signed: 05/01/2020 12:34 PM Workstation Name: [id number]
== END 2020-05-01 08:28 | disposition home or self-care (01) ==
LOC: NM 08:27
PROVIDERS: ATTEND Internal Medicine Hematology & Oncology
DX: C50.912 Malignant neoplasm of unspecified site of left female breast (principal); C79.51 Secondary malignant neoplasm of bone; R91.1 Solitary pulmonary nodule; K76.89 Other specified diseases of liver
CPT/HCPCS: 36415; 71270; 74178; 78306; 82565; 84520; A9503; Q9967

== ENCOUNTER 2020-08-04 09:15 | Outpatient (CLI) | payer BC ==
[2020-08-04 10:29] LABS: Blood Urea Nitrogen 20 mg/dL (7-17)
--- NOTE | 2020-08-04 11:46 | Cat Scan Report ---
CT chest w con, CT abdomen pelvis w con INDICATION / CLINICAL INFORMATION: Breast cancer. Metastasis. TECHNIQUE: Axial CT images were obtained through the chest, abdomen and pelvis. All CT scans at this location ar e performed using CT dose reduction for ALARA by means of automated exposure control. COMPARISON: 05/01/2020 FINDINGS: CHEST: Lungs: Lungs are clear. No new or enlarging pulmonary nodule. No pleural effusion. No pneumothorax. Heart: No significant abnormality. Mediastinum: No significant abnormality. Lymph nodes: Left axillary lymph nodes are similar. ADDITIONAL FINDINGS: The left breast parenchyma is similar prior. There is nodularity seen deep to th e nipple as seen on image 65 of series 2 which is unchanged. Bones: Diffuse osseous metastasis similar to prior. ABDOMEN and PELVIS: Liver: There is decreased size in the left hepatic hypoattenuating lesion seen on image 90 of series 2 now measuring approximately 1.7 cm and previously measuring 2.1 cm. Otherwise, the hypoattenuating liver lesions are unchanged. Biliary: No significant abnormality. Spleen: No significant abnormality. Unenlarged. Pancreas: No significant abnormality. Adrenals: No significant abnormality. Kidneys: No significant abnormality. Lymphatics: No lymphadenopathy. Vasculature: No significant abnormality. Bowel: No significant abnormality. Pelvis: No significant abnormality. Osseous Structures: Diffuse osseous metastasis similar prior Additional Findings: None IMPRESSION: 1. One of the liver lesions is slightly decreased in size compared to prior examination. Otherwise, n o significant change. No evidence of progression. Signer Name: Adeel Sosa MD Signed: 08/04/2020 11:41 AM Workstation Name: [email or web address]
--- NOTE | 2020-08-04 13:42 | Nuclear Medicine Report ---
NUCLEAR MEDICINE BONE SCAN, WHOLE BODY INDICATION: C50.912. Restaging of left breast cancer. TECHNIQUE: 25 mCi of Tc-99m MDP were injected IV. Whole body images were obtained. COMPARISON: Bone scan dated 05/01/2020. CT chest abdomen and pelvis performed the same day. FINDINGS: Skeletal Structures: Fairly symmetric, likely degenerative uptake is present involving the shoulders , spine, knees and feet. Skeletal Lesions: Multiple abnormal foci of radiotracer uptake are identified throughout the proximal humeri, bilateral scapula spine, sternum, bilateral ribs and sacrum. The overall pattern of uptake i s similar to the previous exam although the intensity of uptake has increased.. Soft Tissues: Normal. Kidneys: Normal, symmetric activity. Additional Findings: None. IMPRESSION: Mild progression of disease is suggested since the previous bone scan. There are multiple bony metas tasis throughout the axial skeleton as described. The overall number and distribution of the lesions appear stable although there is increased intensity of radiotracer uptake since the previous bone sca n.. Signer Name: Anuj Rodas Jr, MD Signed: 08/04/2020 1:38 PM Workstation Name: [id number]
== END 2020-08-04 09:16 | disposition home or self-care (01) ==
LOC: NM 09:15
PROVIDERS: ATTEND Internal Medicine Hematology & Oncology
DX: C50.912 Malignant neoplasm of unspecified site of left female breast (principal); K76.9 Liver disease, unspecified
CPT/HCPCS: 36415; 71260; 74177; 78306; 82565; 84520; A9503; Q9967

== ENCOUNTER 2020-09-27 09:12 | Outpatient (CLI) | payer BC ==
--- NOTE | 2020-09-27 10:53 | Mammography Report ---
BILATERAL DIGITAL DIAGNOSTIC MAMMOGRAM WITH CAD , 09/27/2020 LEFT COMPLETE BREAST ULTRASOUND CLINICAL INFORMATION / INDICATION: The patient has a known diagnosis of left breast cancer with metas tasis. This is a short-term follow-up evaluation. TECHNIQUE: Digital bilateral mammographic imaging was performed. Complete ultrasound of all four (4) quadrants was performed. This examination was interpreted with the benefit of Computer-Aided Detectio n (CAD) analysis. COMPARISON: Diagnostic mammogram, 03/28/2020, 09/21/2019, 11/03/2018, 09/24/2018. Left breast ultrasound, 03/28/2020 FINDINGS: Breast Density: There are scattered areas of fibroglandular density. MAMMOGRAPHIC FINDINGS: Right breast: Circumscribed nodularity in the right breast is again noted and appears unchanged. The nodular density at the 9:00 position periareolar location is unchanged, contains a biopsy clip and re presents a site of benign biopsy. Left breast: The dominant nodular density at the 12:00 position is again noted measuring 2.4 cm. Left nipple retraction is stable. The ill-defined nodularity throughout the upper outer quadrant has also minimally increased when compared to multiple prior studies back to 2018. Enlarged left axillary lymph nodes are stable. ULTRASOUND FINDINGS: Complete sonographic evaluation of all 4 quadrants and retroareolar region was p erformed. Sonographic evaluation of the left breast demonstrates the dominant biopsy proven neoplas m measuring 2.1 x 1.6 x 1.0 cm, as compared to the previous ultrasound where it measured 2.1 x 1.6 x 1.2 cm. The second irregular mass at the 1:00 position 11 cm from the nipple measures 8 mm and is unc hanged. The third irregular mass at the 3:00 position 5 cm from the nipple measures 0.7 x 0.5 cm and is also unchanged. Mildly enlarged left axillary lymph node with eccentric cortical thickening has not significantly gloria nged. Maximum cortical thickness measures 4 mm. IMPRESSION: 1. Total of 3 left breast masses in the central and upper outer left breast which have not significan tly changed when compared to the previous study of March 2020. Overall, ill-defined nodularity thro ughout the upper outer left breast has slightly increased when compared to previous studies back to 019. 2. Stable nodularity of the right breast which has a benign appearance. Follow up recommendation: Clinical exam BI-RADS Category 6: Known Biopsy-Proven Malignancy. A "normal" or negative report should not discourage follow up or biopsy of a clinically significant f inding. A written summary of these findings will be mailed to the patient. The patient will be entered into a mammography reporting system which will generate a reminder letter for the patient's next appointmen t at the appropriate interval. According to the [employer], yearly mammograms are recommended starting at age 40 and continuing as long as a woman is in good health. Breast MRI is recommended for women with an fabiano roximately 20-25% or greater lifetime risk of breast cancer, including women with a strong family his tory of breast or ovarian cancer and women who have been treated for Hodgkin's disease. Signer Name: Livia Gallagher MD Signed: 09/27/2020 10:48 AM Workstation Name: [email or web address]
== END 2020-09-27 09:13 | disposition home or self-care (01) ==
LOC: SPVWC 09:12
PROVIDERS: ATTEND Surgery
DX: C50.412 Malignant neoplasm of upper-outer quadrant of left female breast (principal); N63.42 Unspecified lump in left breast, subareolar; N63.41 Unspecified lump in right breast, subareolar; R59.0 Localized enlarged lymph nodes
CPT/HCPCS: 77066

== ENCOUNTER 2020-11-24 10:06 | Outpatient (CLI) | payer BC ==
[2020-11-24 10:53] LABS: Blood Urea Nitrogen 13 mg/dL (7-17)
--- NOTE | 2020-11-24 12:02 | Cat Scan Report ---
CT CHEST, ABDOMEN, AND PELVIS WITH IV CONTRAST INDICATION / CLINICAL INFORMATION: MALIGNANT OF NEOPLASM OF UNSPECIFIED SITE OF L/FEMALE BREAST OMNI 300 100 ML. TECHNIQUE: Axial CT images were obtained through the chest, abdomen, and pelvis after 100 cc IV contrast. All CT scans at this location are performed using CT dose reduction for ALARA by means of automated exposur e control. COMPARISON: CT chest abdomen pelvis 08/04/2020 FINDINGS: Right internal jugular Port-A-Cath has tip in SVC. HEART: No significant abnormality. THORACIC AORTA: No significant abnormality. MEDIASTINUM and LISSETH: No significant abnormality. LUNGS: No acute air space or interstitial disease. PLEURA: No significant pleural effusion. No pneumothorax. ADDITIONAL CHEST FINDINGS: Enlarged left axillary lymph node again noted measuring 1.6 cm, unchanged. Central left breast nodularity again noted. LIVER: 4 hypodense liver lesions, unchanged GALLBLADDER: No significant abnormality. BILE DUCTS: No significant abnormality. PANCREAS: No significant abnormality. SPLEEN: No significant abnormality. ADRENALS: No significant abnormality. RIGHT KIDNEY and URETER: No significant abnormality. LEFT KIDNEY and URETER: No significant abnormality. STOMACH and SMALL BOWEL: No significant abnormality. COLON: No significant abnormality. APPENDIX: No significant abnormality. PERITONEUM: No free fluid. No free air. No fluid collection. LYMPH NODES: No significant adenopathy. AORTA and ARTERIES: No significant abnormality. IVC and VEINS: No significant abnormality. URINARY BLADDER: No significant abnormality. REPRODUCTIVE ORGANS: No significant abnormality. ADDITIONAL FINDINGS: None. SKELETAL SYSTEM: Diffuse blastic skeletal metastases are noted throughout the thoracic, lumbar spine, rib cage, scapulae, sternum, both proximal humeri and femurs. No pathologic fracture seen on today's study. IMPRESSION: 1. Central left breast nodularity and left axillary adenopathy, unchanged. 2. Stable liver metastases and extensive blastic skeletal metastases, unchanged. The skeletal metasta ses within both femoral necks and proximal femurs are at risk for future pathologic fractures. Signer Name: Raymond Bates MD Signed: 11/24/2020 11:57 AM Workstation Name: [email or web address]
--- NOTE | 2020-11-24 13:36 | Nuclear Medicine Report ---
. NUCLEAR MEDICINE BONE SCAN, WHOLE BODY INDICATION / CLINICAL INFORMATION: MALIGNANT NEOPLASM OF UNSPECIFIED SITE OF L/FEMALE BREAST. TECHNIQUE: 25.4 mCi of Tc-99m MDP were injected IV. Images were obtained of the whole body. COMPARISON: CT done earlier on 11/24/2020 and prior bone scan on 08/04/2020 FINDINGS: ARTICULAR STRUCTURES: Mild, relatively symmetric, periarticular activity which is likely degenerative . SKELETAL LESIONS: Compared with the previous bone scan, lesions within the spine and ribs as well as the pelvis appear largely unchanged in the degree of uptake. SOFT TISSUES: Normal. KIDNEYS: Normal. ADDITIONAL FINDINGS: None. IMPRESSION: 1. Unchanged burden of osseous metastatic disease compared with previous bone scan on 08/04/2020. Signer Name: Miek Gooden MD Signed: 11/24/2020 1:31 PM Workstation Name: [id number]
== END 2020-11-24 10:07 | disposition home or self-care (01) ==
LOC: NM 10:06
PROVIDERS: ATTEND Internal Medicine Hematology & Oncology
DX: C50.912 Malignant neoplasm of unspecified site of left female breast (principal); C79.51 Secondary malignant neoplasm of bone; E11.9 Type 2 diabetes mellitus without complications; D70.9 Neutropenia, unspecified; D64.9 Anemia, unspecified
CPT/HCPCS: 36415; 71260; 74177; 78306; 82565; 84520; A9503; Q9967

== ENCOUNTER 2021-02-28 08:39 | Outpatient (CLI) | payer BC ==
[2021-02-28 10:14] LABS: Blood Urea Nitrogen 19 mg/dL (7-17)
--- NOTE | 2021-02-28 12:13 | Cat Scan Report ---
CT CHEST, ABDOMEN, AND PELVIS WITH IV CONTRAST INDICATION / CLINICAL INFORMATION: BREAST CANCER. TECHNIQUE: Axial CT images were obtained through the chest, abdomen, and pelvis after IV contrast. All CT scans at this location are performed using CT dose reduction for ALARA by means of automated exposure contr ol. COMPARISON: 02/28/2021 FINDINGS: CHEST: 2 small pulmonary nodules in the right lung adjacent to the fissure measuring 2 mm no signific ant change. No focal consolidation or pleural effusion. Small nodule within the right middle lobe mely sures 3 to 4 mm. This was not as well-seen on the prior exam. Small axillary mediastinal nodes are se en. Heart appears normal. ABDOMEN/PELVIS: Within limits of a noncontrast examination there are multiple liver lesions which als o seen on prior exam. Adrenal glands, pancreas and upper GI tract appear normal. There is right hydro ureteronephrosis. Mild inflammation is seen surrounding soft tissue density in the right pelvis is co uld represent the right ovary. Pancreas, coronal images appear normal. Appendix appears normal. Diffu se lytic and sclerotic metastatic disease throughout There is skin thickening within the left breast with multiple small nodular densities in the right br east. IMPRESSION: 1. Several nodular densities in the right breast with skin thickening and densities in the left breas t. Clinical correlation with mammography and history. Findings appear similar to prior exam. 2. Multiple hepatic lesions suggesting hepatic cyst. 3. Right hydroureteronephrosis. This appears new since prior examination. The ureter transitions in t he region of the right pelvis. This soft tissue density which could represent right adnexa with mild surrounding inflammation. Pelvic ultrasound could be performed. 4. Diffuse metastatic bone disease is again seen. Signer Name: Tyler Higginbotham MD Signed: 02/28/2021 12:08 PM Workstation Name: [id number]
--- NOTE | 2021-02-28 13:27 | Nuclear Medicine Report ---
NUCLEAR MEDICINE BONE SCAN, WHOLE BODY INDICATION / CLINICAL INFORMATION: BREAST CANCER. TECHNIQUE: 26.4 mCi of Tc-99m MDP were injected IV. Images were obtained of the whole body. COMPARISON: 11/24/[address] of the chest and pelvis from same day. FINDINGS: BONES: No significant change in radiotracer uptake as compared to previous scan. JOINTS: Degeneration and bilateral shoulder girdles and bilateral feet. SOFT TISSUES: No significant abnormality. KIDNEYS: Right hydronephrosis. ADDITIONAL FINDINGS: None. IMPRESSION: 1. No significant change in radiotracer uptake compared to the previous exam. 2. Right hydronephrosis. Signer Name: Huy Loving DO Signed: 02/28/2021 1:22 PM Workstation Name: [id number]
== END 2021-02-28 08:40 | disposition home or self-care (01) ==
LOC: NM 08:39
PROVIDERS: ATTEND Internal Medicine Hematology & Oncology
DX: C50.912 Malignant neoplasm of unspecified site of left female breast (principal); C79.51 Secondary malignant neoplasm of bone; E11.9 Type 2 diabetes mellitus without complications; D70.9 Neutropenia, unspecified; D64.9 Anemia, unspecified; R91.1 Solitary pulmonary nodule; K76.9 Liver disease, unspecified; N64.89 Other specified disorders of breast; N13.30 Unspecified hydronephrosis; M19.012 Primary osteoarthritis, left shoulder; M19.011 Primary osteoarthritis, right shoulder
CPT/HCPCS: 36415; 71270; 74178; 78306; 82565; 84520; A9503; Q9967